=== PATIENT | female | born 1945 | race Two or more races ===

== ENCOUNTER 2019-01-04 16:24 | Inpatient (IN) | payer MEDICARE, MEDICAID ==
[~2019-01-04] VITALS: Ht 152.4 cm; Wt 64.6 kg
--- NOTE | 2019-01-04 17:12 | Emergency Room Report ---
History of Present Illness General Chief Complaint: Back Pain-No Injury Source: Family Member (Luis Carlos Kaur) Present Illness HPI 73-year-old female patient presents the ER brought in by daughter complaining of left-sided flank pain, diarrhea, dysuria for the past week. Patient reports that she recently returned from [place] when she first began having symptoms there. Denies hematuria. Denies vaginal discharge. Reports was treated by "a family member" with ciprofloxacin, clindamycin and ketoconazole topically. Reports symptoms persisted. Denies blood in stool. Denies vomiting. Denies fever. Denies chest pain or shortness of breath. Denies other aggravating or relieving factors. Reports hx of diabetes, states well controlled. Reports history of HIV, states saw her primary care doctor prior to going to [place] and states that her labs were "good", viral load undetectable, CD4 count elevated. (Luis Carlos Kaur) Allergies: Coded Allergies: No Known Allergies (Unverified , 01/04/19) Patient History Past Medical History: see triage record Reviewed Nursing Documentation: PMH: Agreed; PSxH: Agreed (Luis Carlos Kaur) Nursing Documentation-PMH Past Medical History: No History, Except For Hx Hypertension: Yes Hx Diabetes: Yes (Luis Carlos Kaur) Review of Systems All Other Systems: negative except mentioned in HPI (Luis Carlos Kaur) Physical Exam Vital Signs Date Time Temp Pulse Resp B/P (MAP) Pulse Ox O2 Delivery O2 Flow Rate FiO2 01/04/19 16:37 97.5 84 16 109/68 97 Room Air Sp02 EP Interpretation: reviewed, normal General Appearance: well appearing, no apparent distress, alert, GCS 15, non- toxic Head: normocephalic, atraumatic Eyes: bilateral eye normal inspection, bilateral eye PERRL ENT: hearing grossly normal, normal pharynx, no angioedema, normal voice, uvula midline, moist mucus membranes Neck: full range of motion Respiratory: lungs clear, normal breath sounds, no rhonchi, no respiratory distress, no accessory muscle use, no wheezing, speaking full sentences Cardiovascular #1: regular rate, rhythm, no edema Gastrointestinal: normal bowel sounds, non tender, soft, no mass, non-distended , no guarding, no rebound Genitourinary: CVA tenderness (L) Musculoskeletal: back normal, digits/nails normal, gait/station normal, normal range of motion, non-tender Neurologic: alert, oriented x3, responsive, motor strength/tone normal, sensory intact Psychiatric: mood/affect normal Skin: no rash (Luis Carlos Kaur) Medical Decision Making ID Attestation Dr. Franz is my supervising Physician whom patient management has been discussed with. (Luis Carlos Kaur) Medicare Attestation The history of Zulma Lopez has been reviewed and management options for her have been examined and discussed by Olivier Franz. I have personally examined and interviewed the patient. (Olivier Franz MD) Diagnostic Impression: Primary Impression: Weakness Additional Impressions: Hyperglycemia Pancreatitis Renal insufficiency ER Course Pt. presents to the ED c/o diarrhea, left flank pain and dysuria. Ddx considered but are not limited to UTI, yeast infection, gastritis, colitis, nephrolithiasis, hydronephrosis, diverticulitis, DKA, pancreatitis. Vital signs: are WNL, pt. is afebrile ER COURSE: CBC unremarkable, no elevation WBCs UA shows positive yeast, will provide with fluconazole, urine otherwise unremarkable, low suspicion for UTI, does not require antibiotics at this time. CMP shows elevated blood glucose, no anion gap, no ketones in urine, low suspicion for DKA, mild hyponatremia and hypokalemia, will provide patient with IV fluids and oral potassium. Will provide insulin for elevated blood glucose. Creatinine elevated, likely renal insufficiency. Elevated lipase likely secondary to HIV medications causing mild pancreatitis. Repeat Accu-Chek shows blood glucose 316. CT abdomen pelvis negative. Will admit patient for weakness, renal insufficiency, colitis, hyperglycemia. Discuss care with Dr. Franz. Patient will be admitted to Dr. Kaminski. - Please note that this Emergency Department Report was dictated using [employer] catalyst operator technology software, occasionally this can lead to erroneous entry secondary to interpretation by the dictation equipment. (Luis Carlos Kaur) CT/MRI/US Diagnostic Results CT/MRI/US Diagnostic Results : Imaging Test Ordered: CT abdomen pelvis Impression No acute abnormality demonstrated in the abdomen or pelvis (Luis Carlos Kaur.Gelacio) Last Vital Signs Date Time Temp Pulse Resp B/P (MAP) Pulse Ox O2 Delivery O2 Flow Rate FiO2 4/20/19 16:37 97.5 84 16 109/68 97 Room Air (Luis Carlos Kaur) Disposition: ADMITTED INPATIENT Condition: Serious Luis Carlos Kaur Jan 04, 2019 17:12 Olivier Franz MD Jan 08, 2019 06:35
[2019-01-04] MEDS ORDERED: Isovue-300 100ml vial INJ PRN (17:15)
[2019-01-04] MEDS ORDERED: Morphine Sulfate 4mg/ml Inj (IV USE ONLY) IVP ONE (17:15)
[2019-01-04 17:32] LABS: APPEARANCE,URINE CLEAR; BILIRUBIN, URINE NEGATIVE (NEGATIVE); GLUCOSE, URINE (UA) 4+ (NEGATIVE); KETONES,URINE NEGATIVE (NEGATIVE); LEUKOCYTE ESTERASE ,URINE 2+ (NEGATIVE); NITRITE,URINE NEGATIVE (NEGATIVE); PH,URINE 7 (4.5-8.0); PROTEIN,URINE 1+ (NEGATIVE); UROBILINOGEN,URINE NORMAL MG/DL (0.0-1.0)
[2019-01-04 17:33] LABS: COLOR,URINE YELLOW
[2019-01-04 17:42] VITALS: BP 109/68
[2019-01-04 17:48] LABS: BASOPHILS % (AUTO) 1.2 % (0.0-2.0); HEMATOCRIT 35.5 % (37.0-47.0); HEMOGLOBIN 12.8 G/DL (12.0-16.0); LYMPHOCYTES % (AUTO) 18.4 % (20.0-45.0); MEAN CORPUSCULAR VOLUME 89 FL (80-99); NEUTROPHILS % (AUTO) 73.4 % (45.0-75.0); PLATELET COUNT 342 K/UL (150-450); RED CELL DISTRIBUTION WIDTH 10.8 % (11.6-14.8); WHITE BLOOD COUNT 10.6 K/UL (4.8-10.8)
[2019-01-04 17:49] LABS: ALANINE AMINOTRANSFERASE 30 U/L (12-78); ALBUMIN 3.4 G/DL (3.4-5.0); ALBUMIN/GLOBULIN RATIO 0.7 (1.0-2.7); ALKALINE PHOSPHATASE 124 U/L (46-116); ANION GAP 12 mmol/L (5-15); ASPARTATE AMINO TRANSFERASE 17 U/L (15-37); BILIRUBIN,TOTAL 0.4 MG/DL (0.2-1.0); BLOOD UREA NITROGEN 17 mg/dL (7-18); CALCIUM 10.2 MG/DL (8.5-10.1); CARBON DIOXIDE 24 MMOL/L (21-32); CHLORIDE 92 MMOL/L (98-107); CREATININE 1.7 MG/DL (0.55-1.30); POTASSIUM 3.2 MMOL/L (3.5-5.1); SODIUM 128 MMOL/L (136-145)
[2019-01-04] MEDS ORDERED: Fluconazole 100mg tab ORAL ONE (18:00)
[2019-01-04] MEDS ORDERED: Insulin Human Regular 100units/ml 3ml IV ONE (18:15)
[2019-01-04] MEDS ORDERED: OSCAL D500 MG ORAL (18:29)
[2019-01-04] MEDS ORDERED: TRIUMEQ 600-501 EACH PO (18:29)
[2019-01-04] MEDS ORDERED: METFORMIN HCL500 M1 ORAL (18:29)
[2019-01-04] MEDS ORDERED: VITAMIN B COMP1 EAC2 ORAL (18:29)
[2019-01-04] MEDS ORDERED: FERROUS SULFAT325 MG ORAL (18:29)
[2019-01-04] MEDS ORDERED: PRAVASTATIN SOD20 M1 ORAL (18:29)
[2019-01-04] MEDS ORDERED: GLIPIZIDE5 MG ORAL (18:29)
[2019-01-04 20:45] VITALS: BP 133/70
[2019-01-05] VITALS: BP 95/57
[2019-01-05 04:12] VITALS: BP 102/58
[2019-01-05] MEDS: NovoLOG Insulin Flexpen SUBQ SCH ×4 (06:22→20:41)
[2019-01-05 08:00] VITALS: BP 87/48
[2019-01-05 08:48] LABS: ANION GAP 10 mmol/L (5-15); BLOOD UREA NITROGEN 12 mg/dL (7-18); CALCIUM 8.6 MG/DL (8.5-10.1); CARBON DIOXIDE 22 MMOL/L (21-32); CHLORIDE 104 MMOL/L (98-107); CREATININE 1.3 MG/DL (0.55-1.30); POTASSIUM 3.9 MMOL/L (3.5-5.1); SODIUM 136 MMOL/L (136-145)
[2019-01-05] MEDS: Captopril 25mg tab ORAL SCH (09:00)
[2019-01-05] MEDS: Calcium Carbonate 500mg w/Vit D 200iu tab ORAL SCH ×2 (09:05→16:59)
[2019-01-05] MEDS: Vitamin B Complex Tab ORAL SCH (09:05)
--- NOTE | 2019-01-05 10:35 | History & Physical ---
History and Physical History & Physicial HP dictated # [id number] Walker Kaminski MD Jan 05, 2019 10:35
[2019-01-05] MEDS: cefTRIAXone 1 GM in D5W 55 ML IVPB SCH (11:28)
[2019-01-05 12:00] VITALS: BP 120/59
[2019-01-05 16:00] VITALS: BP 105/57
--- NOTE | 2019-01-05 16:45 | History and Physical Report ---
DATE OF ADMISSION: 01/04/2019 CHIEF COMPLAINT: Left-sided flank pain. HISTORY OF PRESENT ILLNESS: This is a 73-year-old female, who does not speak Georgian. History was obtained from the chart as well as through the clinical trials data coordinator. The patient says that she has left-sided flank pain and dysuria, and she just recently came back from [place]. The patient was seen in the emergency room and was found to have urinary tract infection and admitted for further care. Of note, the patient also has a history of HIV, which she contracted from a partner. PAST MEDICAL HISTORY: The patient has also history of diabetes and hypertension. MEDICATIONS: Reviewed in the EMR. SOCIAL HISTORY: The patient lives at home with daughter. There is no history of smoking or alcohol abuse. ALLERGIES: No known drug allergies. REVIEW OF SYSTEMS: Noncontributory. PHYSICAL EXAMINATION: GENERAL: The patient is an elderly female, in no acute distress. VITAL SIGNS: Blood pressure is 109/68, pulse 84, temperature 97.5, and respiratory rate 16. HEENT: [place] conjunctivae. Anicteric sclerae. NECK: Supple. LUNGS: Clear to auscultation. HEART: S1, S2 without murmurs or rubs. ABDOMEN: Soft and nontender. EXTREMITIES: No cyanosis or edema. LABORATORY FINDINGS: CBC shows a WBC 10,600, hematocrit 35.5, hemoglobin 12.8, and platelets 342,000. Chemistry panel shows a sodium 136, potassium 3.9, chloride 104, BUN 12, and creatinine 1.3. Blood sugar is 208. Blood sugar yesterday was 529 and serum sodium was 128. Lipase was 444. ASSESSMENT: This is a 73-year-old female with history of HIV, who presents now with urinary tract infection. UA shows 5 to 10 per high-power field. PLAN: The patient was started on IV antibiotics and IV normal saline. She had hyponatremia, which had improved with saline. ID consultation will be obtained and adjustment will be made in the patient's regimen. Walker Kaminski M.D. : VASQUEZ JOB#: [id number] CC:
--- NOTE | 2019-01-05 16:45 | Consultation ---
DATE OF CONSULTATION: 01/05/2019 INFECTIOUS DISEASES CONSULTATION CONSULTING PHYSICIAN: Quinton Kaminski M.D. PRIMARY ATTENDING PHYSICIAN: Walker Kaminski M.D. REASON FOR CONSULTATION: HIV and UTI. HISTORY OF PRESENT ILLNESS: This is a 73-year-old female admitted last evening with complaints of left-sided flank pain, diarrhea, dysuria. The patient had urinary frequency. The patient has returned back from [place] one month ago. There she was treated for likely urinary tract infection with Cipro, clindamycin, ketoconazole topically. She has HIV for 4 years and has a primary doctor. At the time of admission, it was found that the patient has acute renal failure and hyperglycemia. PAST MEDICAL HISTORY: Significant for diabetes mellitus for 15 years. The patient had a stroke about 4 years ago and has weakness in the left side of the body, HIV diagnosed 4 years ago at the time of stroke. 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 ALLERGIES: No known drug allergies. MEDICATIONS: Getting calcium carbonate, ferrous sulfate, vitamin B complex , insulin, sodium chloride, morphine, pravastatin, Zofran. SOCIAL HISTORY: , originally from [place]. Denies alcohol, drug abuse, or smoking. Thinks she got HIV from boyfriend. REVIEW OF SYSTEMS: The patient currently is pain-free. No fever. No chills. No nausea. No vomiting. Has urinary frequency. Has weakness in the left side of the body that is unchanged, but is ambulatory and can go to the bathroom. PHYSICAL EXAMINATION: VITAL SIGNS: Temperature is 97.8 daily, pulse 50, blood pressure 87/48. GENERAL APPEARANCE: Seems to have normal weight. HEAD AND NECK: [place] conjunctivae. No teeth. No oral lesion. HEART: Bradycardic. LUNGS: Clear. ABDOMEN: Soft and nontender. EXTREMITIES: No edema. NEUROLOGIC: Awake, alert, oriented x3. LABORATORY AND DIAGNOSTIC DATA: Sodium 136, sodium at the time of admission was 128. Potassium 3.9, potassium at the time of admission was 3.2. BUN 12 and creatinine 1.3. Creatinine at the time of admission was 1.7. Glucose 208, glucose at the time of admission was 520. Hemoglobin A1c is 13. Lipase was elevated at 444. CT scan of the abdomen and pelvis was negative. Urine cultures so far negative. IMPRESSION: HIV unknown stage and on unknown medication. The daughter is supposed to bring the patient medication from home. The patient had mild pyuria, may have UTI, mild pancreatitis, diabetes with hyperglycemia. Electronic imbalance was corrected. . Acute renal failure that is improving. RECOMMENDATION: We will give the patient ceftriaxone. We will follow up HIV medications with daughter. At the end of my exam, I thank Dr. Walker Kaminski for involving me in the care of this patient. Quinton Kaminski M.D. DR: Gadiel JOB#: [id number] CC: MARITA
[2019-01-05 20:00] VITALS: BP 134/62
[2019-01-05] MEDS: TRIUMEQ ORAL SCH (20:35)
[2019-01-06] VITALS: BP 123/58
[2019-01-06 04:00] VITALS: BP 122/68
[2019-01-06] MEDS: NovoLOG Insulin Flexpen SUBQ SCH ×6 (06:23→21:00)
[2019-01-06 08:00] VITALS: BP 134/74
[2019-01-06] MEDS: Calcium Carbonate 500mg w/Vit D 200iu tab ORAL SCH ×2 (08:40→17:36)
[2019-01-06] MEDS: Vitamin B Complex Tab ORAL SCH (08:40)
[2019-01-06] MEDS: Captopril 25mg tab ORAL SCH (08:40)
[2019-01-06] MEDS: cefTRIAXone 1 GM in D5W 55 ML IVPB SCH (08:41)
[2019-01-06 12:00] VITALS: BP 114/57
--- NOTE | 2019-01-06 13:19 | Infectious Diseases Prog Note ---
Assessment/Plan Assessment/Plan IMPRESSION: HIV on Triumeq mild pyuria, may have UTI, mild pancreatitis, diabetes with hyperglycemia. Electronic imbalance was corrected. . Acute renal failure that is improving. RECOMMENDATION: Continue ceftriaxone Continue ART Subjective ROS Limited/Unobtainable: No Constitutional: Reports: no symptoms Respiratory: Reports: no symptoms Cardiovascular: Reports: no symptoms Gastrointestinal/Abdominal: Reports: no symptoms Genitourinary: Reports: no symptoms Allergies: Coded Allergies: No Known Allergies (Unverified , 01/04/19) Objective Vital Signs Last 24 Hour Vital Signs Date Time Temp Pulse Resp B/P (MAP) Pulse Ox O2 Delivery O2 Flow Rate FiO2 01/06/19 12:00 98.7 57 16 114/57 (76) 01/06/19 09:00 Room Air 01/06/19 08:40 137/74 01/06/19 08:00 98.1 62 134/74 (94) 01/06/19 04:00 98.7 58 16 122/68 (86) 98 01/06/19 00:00 99.2 62 16 123/58 (79) 97 01/05/19 21:00 Room Air 01/05/19 20:00 98.8 65 16 134/62 (86) 96 01/05/19 16:00 99.0 57 18 105/57 (73) 97 Height (Feet): 5 Height (Inches): 0.00 Weight (Pounds): 140 General Appearance: no acute distress HEENT: mucous membranes moist Respiratory/Chest: lungs clear Cardiovascular: normal rate Abdomen: soft, non tender Extremities: no edema Neurologic/Psychiatric: alert, oriented x 3, responsive Microbiology Date/Time Source Procedure Growth Status 01/04/19 16:55 Urine,Clean Catch Urine Culture - Final Lactobacillus Species Complete Current Medications Medications (Trade) Dose Ordered Sig/Lebron Route PRN Reason Start Time Stop Time Status Last Admin Dose Admin Acetaminophen (Tylenol) 650 mg Q4H PRN ORAL Prn Headache/Temp > 101 01/04/19 22:00 02/03/19 21:59 01/04/19 22:53 Calcium Carbonate (OsCal D) 1 tab BID ORAL 01/05/19 09:00 02/04/19 08:59 01/06/19 08:40 Captopril (Capoten) 25 mg Q24HRS ORAL 01/05/19 09:00 02/04/19 08:59 01/06/19 08:40 Ceftriaxone Sodium 1 gm/ Dextrose 55 ml @ 110 mls/hr DAILY IVPB 01/05/19 12:00 01/12/19 11:59 01/06/19 08:41 Dextrose (Dextrose 50%) 25 ml Q30M PRN IV Hypoglycemia 01/04/19 21:45 02/03/19 21:44 Dextrose (Dextrose 50%) 50 ml Q30M PRN IV Hypoglycemia 01/04/19 21:45 02/03/19 21:44 Ferrous Sulfate (Feosol) 325 mg TWICE A DAY ORAL 01/05/19 09:00 02/04/19 08:59 01/06/19 08:40 Insulin Aspart (NovoLOG) BEFORE MEALS AND HS SUBQ 01/05/19 06:30 02/04/19 06:29 01/06/19 12:19 Iopamidol (Isovue-300 100ml) 100 ml NOW PRN INJ Radiology Procedure 01/04/19 17:15 Morphine Sulfate (Morphine Sulfate) 3 mg Q3H PRN IVP Moderate Pain (Pain Scale 4-6) 01/04/19 21:45 01/11/19 21:44 Morphine Sulfate (Morphine Sulfate) 5 mg Q3H PRN IVP Severe Pain (Pain Scale 7-10) 01/04/19 21:45 01/11/19 21:44 Ondansetron HCl (Zofran) 4 mg Q4H PRN IVP Nausea & Vomiting 01/04/19 21:45 02/03/19 21:44 Patient Own Medication (Patient's Own Med) 1 ea DAILY@1800 ORAL 01/05/19 21:00 02/04/19 20:59 01/05/19 20:35 Pravastatin Sodium (Pravachol) 40 mg BEDTIME ORAL 01/04/19 21:45 02/03/19 21:44 01/05/19 20:40 Sodium Chloride 1,000 ml @ 75 mls/hr [id number] IV 01/04/19 21:45 02/03/19 21:44 01/06/19 00:09 Vitamin B Complex (Vitamin B Complex) 1 tab DAILY ORAL 01/05/19 09:00 02/04/19 08:59 01/06/19 08:40 Quinton Kaminski MD Jan 06, 2019 13:19
[2019-01-06 16:09] VITALS: BP 158/76
--- NOTE | 2019-01-06 16:44 | General Progress Note ---
Assessment/Plan Problem List: (1) ARF (acute renal failure) ICD Codes: N17.9 - Acute kidney failure, unspecified SNOMED: 99548517 (2) Hyponatremia ICD Codes: E87.1 - Hypo-osmolality and hyponatremia SNOMED: 91149429 (3) Hyperglycemia ICD Codes: R73.9 - Hyperglycemia, unspecified SNOMED: 84041334 (4) UTI (urinary tract infection) ICD Codes: N39.0 - Urinary tract infection, site not specified SNOMED: 70823273 Plan: abxs followlabs Discussed with RN Subjective Allergies: Coded Allergies: No Known Allergies (Unverified , 01/04/19) Subjective feels ok Objective Last 24 Hour Vital Signs Date Time Temp Pulse Resp B/P (MAP) Pulse Ox O2 Delivery O2 Flow Rate FiO2 01/06/19 16:09 99.1 65 18 158/76 (103) 98 01/06/19 12:00 98.7 57 16 114/57 (76) 01/06/19 09:00 Room Air 01/06/19 08:40 137/74 01/06/19 08:00 98.1 62 134/74 (94) 01/06/19 04:00 98.7 58 16 122/68 (86) 98 01/06/19 00:00 99.2 62 16 123/58 (79) 97 01/05/19 21:00 Room Air 01/05/19 20:00 98.8 65 16 134/62 (86) 96 Intake and Output 01/05/19 01/06/19 19:00 07:00 Intake Total 1700 ml 675 ml Output Total 2100 ml 1800 ml Balance -400 ml -1125 ml Intake Oral 800 ml 675 ml IV Total 900 ml Output Urine Total 2100 ml 1800 ml # Voids 3 3 Height (Feet): 5 Height (Inches): 0.00 Weight (Pounds): 140 Cardiovascular: normal rate Respiratory/Chest: lungs clear Walker Kaminski MD Jan 06, 2019 16:43
[2019-01-06] MEDS: TRIUMEQ ORAL SCH (18:29)
[2019-01-06] MEDS ORDERED: NovoLOG Insulin Flexpen SUBQ SCH (19:00)
[2019-01-06 20:00] VITALS: BP 137/65
[2019-01-06] MEDS: Morphine Sulfate 4mg/ml Inj (IV USE ONLY) IVP PRN (20:37)
[2019-01-07] VITALS: BP 114/65
[2019-01-07] MEDS: Morphine Sulfate 4mg/ml Inj (IV USE ONLY) IVP PRN ×3 (01:48→16:09)
[2019-01-07 04:00] VITALS: BP 146/73
[2019-01-07] MEDS: NovoLOG Insulin Flexpen SUBQ SCH ×6 (05:57→22:35)
[2019-01-07 06:37] LABS: BASOPHILS % (AUTO) 0.7 % (0.0-2.0); EOSINOPHILS % (AUTO) 0.6 % (0.0-3.0); HEMOGLOBIN 11.6 G/DL (12.0-16.0); LYMPHOCYTES % (AUTO) 7.9 % (20.0-45.0); MEAN CORPUSCULAR VOLUME 94 FL (80-99); MONOCYTES % (AUTO) 7.3 % (1.0-10.0); NEUTROPHILS % (AUTO) 83.6 % (45.0-75.0); PLATELET COUNT 264 K/UL (150-450); RED CELL DISTRIBUTION WIDTH 11.8 % (11.6-14.8); WHITE BLOOD COUNT 8.5 K/UL (4.8-10.8)
[2019-01-07 06:51] LABS: ANION GAP 12 mmol/L (5-15); BLOOD UREA NITROGEN 13 mg/dL (7-18); CARBON DIOXIDE 23 MMOL/L (21-32); CHLORIDE 99 MMOL/L (98-107); CREATININE 1.4 MG/DL (0.55-1.30); POTASSIUM 3.4 MMOL/L (3.5-5.1); SODIUM 134 MMOL/L (136-145)
[2019-01-07 08:00] VITALS: BP 147/78
[2019-01-07] MEDS: cefTRIAXone 1 GM in D5W 55 ML IVPB SCH (09:23)
[2019-01-07] MEDS: Vitamin B Complex Tab ORAL SCH (09:24)
[2019-01-07] MEDS: Captopril 25mg tab ORAL SCH (09:25)
[2019-01-07] MEDS: Calcium Carbonate 500mg w/Vit D 200iu tab ORAL SCH ×2 (09:25→17:46)
--- NOTE | 2019-01-07 11:07 | Infectious Diseases Prog Note ---
Assessment/Plan Assessment/Plan IMPRESSION: HIV on Triumeq mild pyuria, may have UTI, mild pancreatitis, diabetes with hyperglycemia. Electronic imbalance was corrected. . Acute renal failure that is improving. Ankle edema RECOMMENDATION: Continue ceftriaxone Continue ART R ankle x-ray Subjective ROS Limited/Unobtainable: No Constitutional: Reports: no symptoms Respiratory: Reports: no symptoms Cardiovascular: Reports: no symptoms Gastrointestinal/Abdominal: Reports: no symptoms Genitourinary: Reports: no symptoms Musculoskeletal: Reports: pain, swelling, other - in right ankle Allergies: Coded Allergies: No Known Allergies (Unverified , 01/04/19) Objective Vital Signs Last 24 Hour Vital Signs Date Time Temp Pulse Resp B/P (MAP) Pulse Ox O2 Delivery O2 Flow Rate FiO2 01/07/19 09:25 147/78 01/07/19 09:00 Room Air 01/07/19 08:00 98.9 78 20 147/78 (101) 98 01/07/19 04:00 98.1 74 19 146/73 (97) 96 01/07/19 00:00 97.6 61 16 114/65 (81) 97 01/06/19 21:00 Room Air 01/06/19 20:00 98.2 65 17 137/65 (89) 97 01/06/19 16:09 99.1 65 18 158/76 (103) 98 01/06/19 12:00 98.7 57 16 114/57 (76) Height (Feet): 5 Height (Inches): 0.00 Weight (Pounds): 140 General Appearance: no acute distress HEENT: mucous membranes moist Respiratory/Chest: lungs clear Cardiovascular: normal rate Abdomen: soft, non tender Extremities: other - localized edema & pain in R ankle Skin: no rash Neurologic/Psychiatric: alert, oriented x 3, responsive Microbiology Date/Time Source Procedure Growth Status 01/04/19 16:55 Urine,Clean Catch Urine Culture - Final Lactobacillus Species Complete Laboratory Tests Test 01/07/19 05:45 White Blood Count 8.5 K/UL (4.8-10.8) Red Blood Count 3.60 M/UL (4.20-5.40) L Hemoglobin 11.6 G/DL (12.0-16.0) L Hematocrit 34.0 % (37.0-47.0) L Mean Corpuscular Volume 94 FL (80-99) Mean Corpuscular Hemoglobin 32.2 PG (27.0-31.0) H Mean Corpuscular Hemoglobin Concent 34.1 G/DL (32.0-36.0) Red Cell Distribution Width 11.8 % (11.6-14.8) Platelet Count 264 K/UL (150-450) Mean Platelet Volume 6.5 FL (6.5-10.1) Neutrophils (%) (Auto) 83.6 % (45.0-75.0) H Lymphocytes (%) (Auto) 7.9 % (20.0-45.0) L Monocytes (%) (Auto) 7.3 % (1.0-10.0) Eosinophils (%) (Auto) 0.6 % (0.0-3.0) Basophils (%) (Auto) 0.7 % (0.0-2.0) Sodium Level 134 MMOL/L (136-145) L Potassium Level 3.4 MMOL/L (3.5-5.1) L Chloride Level 99 MMOL/L (98-107) Carbon Dioxide Level 23 MMOL/L (21-32) Anion Gap 12 mmol/L (5-15) Blood Urea Nitrogen 13 mg/dL (7-18) Creatinine 1.4 MG/DL (0.55-1.30) H Estimat Glomerular Filtration Rate mL/min (>60) Glucose Level 341 MG/DL (74-106) H Calcium Level 9.0 MG/DL (8.5-10.1) Current Medications Medications (Trade) Dose Ordered Sig/Lebron Route PRN Reason Start Time Stop Time Status Last Admin Dose Admin Acetaminophen (Tylenol) 650 mg Q4H PRN ORAL Prn Headache/Temp > 101 01/04/19 22:00 02/03/19 21:59 01/07/19 09:24 Calcium Carbonate (OsCal D) 1 tab BID ORAL 01/05/19 09:00 02/04/19 08:59 01/07/19 09:25 Captopril (Capoten) 25 mg Q24HRS ORAL 01/05/19 09:00 02/04/19 08:59 01/07/19 09:25 Ceftriaxone Sodium 1 gm/ Dextrose 55 ml @ 110 mls/hr DAILY IVPB 01/05/19 12:00 01/12/19 11:59 01/07/19 09:23 Dextrose (Dextrose 50%) 25 ml Q30M PRN IV Hypoglycemia 01/04/19 21:45 02/03/19 21:44 Dextrose (Dextrose 50%) 50 ml Q30M PRN IV Hypoglycemia 01/04/19 21:45 02/03/19 21:44 Ferrous Sulfate (Feosol) 325 mg TWICE A DAY ORAL 01/05/19 09:00 02/04/19 08:59 01/07/19 09:24 Insulin Aspart (NovoLOG) BEFORE MEALS AND HS SUBQ 01/05/19 06:30 02/04/19 06:29 01/07/19 06:45 Iopamidol (Isovue-300 100ml) 100 ml NOW PRN INJ Radiology Procedure 01/04/19 17:15 Morphine Sulfate (Morphine Sulfate) 3 mg Q3H PRN IVP Moderate Pain (Pain Scale 4-6) 01/04/19 21:45 01/11/19 21:44 01/07/19 05:55 Morphine Sulfate (Morphine Sulfate) 5 mg Q3H PRN IVP Severe Pain (Pain Scale 7-10) 01/04/19 21:45 01/11/19 21:44 Ondansetron HCl (Zofran) 4 mg Q4H PRN IVP Nausea & Vomiting 01/04/19 21:45 02/03/19 21:44 01/06/19 21:54 Patient Own Medication (Patient's Own Med) 1 ea DAILY@1800 ORAL 01/07/19 18:00 02/04/19 20:59 Pravastatin Sodium (Pravachol) 40 mg BEDTIME ORAL 01/04/19 21:45 02/03/19 21:44 01/06/19 20:36 Sodium Chloride 1,000 ml @ 75 mls/hr [id number] IV 01/04/19 21:45 02/03/19 21:44 01/07/19 03:05 Vitamin B Complex (Vitamin B Complex) 1 tab DAILY ORAL 01/05/19 09:00 02/04/19 08:59 01/07/19 09:24 Quinton Kaminski MD Jan 07, 2019 11:07
[2019-01-07 12:00] VITALS: BP 110/75
--- NOTE | 2019-01-07 15:45 | General Progress Note ---
Assessment/Plan Problem List: (1) ARF (acute renal failure) ICD Codes: N17.9 - Acute kidney failure, unspecified SNOMED: 01172693 (2) Hyponatremia ICD Codes: E87.1 - Hypo-osmolality and hyponatremia SNOMED: 49179165 (3) Hyperglycemia ICD Codes: R73.9 - Hyperglycemia, unspecified SNOMED: 87710657 (4) UTI (urinary tract infection) ICD Codes: N39.0 - Urinary tract infection, site not specified SNOMED: 12461015 Plan: Check x-ray of ankle. Endocrine consult for diabetes. Discussed with family and RN. Follow labs Antibiotics Subjective Allergies: Coded Allergies: No Known Allergies (Unverified , 01/04/19) Subjective Patient has developed a right ankle swelling and redness Objective Last 24 Hour Vital Signs Date Time Temp Pulse Resp B/P (MAP) Pulse Ox O2 Delivery O2 Flow Rate FiO2 01/07/19 09:25 147/78 01/07/19 09:00 Room Air 01/07/19 08:00 98.9 78 20 147/78 (101) 98 01/07/19 04:00 98.1 74 19 146/73 (97) 96 01/07/19 00:00 97.6 61 16 114/65 (81) 97 01/06/19 21:00 Room Air 01/06/19 20:00 98.2 65 17 137/65 (89) 97 01/06/19 16:09 99.1 65 18 158/76 (103) 98 Intake and Output 01/06/19 01/07/19 18:59 06:59 Intake Total 1425 ml 360 ml Balance 1425 ml 360 ml Intake Oral 1200 ml 360 ml IV Total 225 ml # Voids 3 1 Laboratory Tests 01/07/19 05:45: White Blood Count 8.5, Red Blood Count 3.60L, Hemoglobin 11.6L, Hematocrit 34.0L , Mean Corpuscular Volume 94, Mean Corpuscular Hemoglobin 32.2H, Mean Corpuscular Hemoglobin Concent 34.1, Red Cell Distribution Width 11.8, Platelet Count 264, Mean Platelet Volume 6.5, Neutrophils (%) (Auto) 83.6H, Lymphocytes ( %) (Auto) 7.9L, Monocytes (%) (Auto) 7.3, Eosinophils (%) (Auto) 0.6, Basophils (%) (Auto) 0.7, Sodium Level 134L, Potassium Level 3.4L, Chloride Level 99, Carbon Dioxide Level 23, Anion Gap 12, Blood Urea Nitrogen 13, Creatinine 1.4H, Estimat Glomerular Filtration Rate , Glucose Level 341H, Calcium Level 9.0 01/07/19 12:55: Glucose Level 456#H Height (Feet): 5 Height (Inches): 0.00 Weight (Pounds): 140 Cardiovascular: normal rate Respiratory/Chest: lungs clear Extremities: other - Right lateral malleolus shows edema and redness Walker Kaminski MD Jan 07, 2019 15:45
[2019-01-07 16:00] VITALS: BP 131/62
--- NOTE | 2019-01-07 16:04 | Diagnostic Imaging Report ---
Indication: Right ankle pain Technique: 2 views of the right ankle Comparison: none Findings: There are plantar and calcaneal spurs. No definite acute fracture. No dislocations. Joint spaces are preserved Impression: No acute process
[2019-01-07] MEDS: Heparin 5000 units/ml inj SUBQ SCH ×2 (17:46→21:21)
[2019-01-07] MEDS: TRIUMEQ ORAL SCH (17:51)
[2019-01-07 20:00] VITALS: BP 127/65
[2019-01-07] MEDS ORDERED: Levemir Flexpen SUBQ SCH (21:00)
[2019-01-08] VITALS: BP 126/62
[2019-01-08] MEDS: Morphine Sulfate 4mg/ml Inj (IV USE ONLY) IVP PRN (02:24)
[2019-01-08 04:00] VITALS: BP 111/65
[2019-01-08] MEDS: NovoLOG Insulin Flexpen SUBQ SCH ×7 (05:47→20:35)
[2019-01-08 08:00] VITALS: BP 120/66
[2019-01-08] MEDS: Heparin 5000 units/ml inj SUBQ SCH ×2 (08:41→20:36)
[2019-01-08] MEDS: Calcium Carbonate 500mg w/Vit D 200iu tab ORAL SCH ×2 (08:41→17:53)
[2019-01-08] MEDS: cefTRIAXone 1 GM in D5W 55 ML IVPB SCH (08:41)
[2019-01-08] MEDS: Captopril 25mg tab ORAL SCH (08:41)
[2019-01-08] MEDS: Vitamin B Complex Tab ORAL SCH (08:41)
[2019-01-08 12:00] VITALS: BP 143/72
--- NOTE | 2019-01-08 13:24 | Infectious Diseases Prog Note ---
Assessment/Plan Assessment/Plan IMPRESSION: HIV on Triumeq mild pyuria, may have UTI, mild pancreatitis, diabetes with hyperglycemia. Electronic imbalance was corrected. . Acute renal failure that is improving. Ankle edema, X ray & venous duplex are negative RECOMMENDATION: Continue ceftriaxone Continue ART Check uric acid Subjective ROS Limited/Unobtainable: No Constitutional: Reports: fever, other - low grade Respiratory: Reports: no symptoms Cardiovascular: Reports: no symptoms Gastrointestinal/Abdominal: Reports: constipation Genitourinary: Reports: no symptoms Musculoskeletal: Reports: pain, other - in right ankle Allergies: Coded Allergies: No Known Allergies (Unverified , 01/04/19) Objective Vital Signs Last 24 Hour Vital Signs Date Time Temp Pulse Resp B/P (MAP) Pulse Ox O2 Delivery O2 Flow Rate FiO2 01/08/19 12:00 98.4 67 18 143/72 (95) 97 01/08/19 09:00 Room Air 01/08/19 08:41 120/66 01/08/19 08:00 99.4 68 19 120/66 (84) 95 01/08/19 04:00 98.3 73 18 111/65 (80) 97 01/08/19 00:00 100.0 76 16 126/62 (83) 96 01/07/19 21:00 Room Air 01/07/19 20:00 100.0 81 16 127/65 (85) 95 01/07/19 16:00 99.5 70 18 131/62 (85) Height (Feet): 5 Height (Inches): 0.00 Weight (Pounds): 137 General Appearance: no acute distress HEENT: mucous membranes moist Respiratory/Chest: lungs clear Cardiovascular: normal rate Abdomen: soft, non tender Extremities: other - R ankle swelling Neurologic/Psychiatric: alert, responsive Laboratory Tests Test 01/07/19 17:40 01/07/19 21:30 Glucose Level 567 MG/DL (74-106) #*H 527 MG/DL (74-106) *H Current Medications Medications (Trade) Dose Ordered Sig/Lebron Route PRN Reason Start Time Stop Time Status Last Admin Dose Admin Acetaminophen (Tylenol) 650 mg Q4H PRN ORAL Prn Headache/Temp > 101 01/04/19 22:00 02/03/19 21:59 01/08/19 02:26 Calcium Carbonate (OsCal D) 1 tab BID ORAL 01/05/19 09:00 02/04/19 08:59 01/08/19 08:41 Captopril (Capoten) 25 mg Q24HRS ORAL 01/05/19 09:00 02/04/19 08:59 01/08/19 08:41 Ceftriaxone Sodium 1 gm/ Dextrose 55 ml @ 110 mls/hr DAILY IVPB 01/05/19 12:00 01/12/19 11:59 01/08/19 08:41 Dextrose (Dextrose 50%) 25 ml Q30M PRN IV Hypoglycemia 01/07/19 18:00 02/06/19 17:59 Dextrose (Dextrose 50%) 50 ml Q30M PRN IV Hypoglycemia 01/07/19 18:00 02/06/19 17:59 Ferrous Sulfate (Feosol) 325 mg TWICE A DAY ORAL 01/05/19 09:00 02/04/19 08:59 01/08/19 08:41 Heparin Sodium (Porcine) (Heparin 5000 units/ml) 5,000 units EVERY 12 HOURS SUBQ 01/07/19 16:45 02/06/19 16:44 01/08/19 08:41 Insulin Aspart (NovoLOG) BEFORE MEALS AND HS SUBQ 01/05/19 06:30 02/04/19 06:29 01/08/19 11:25 Insulin Aspart (NovoLOG) 8 units NOVOTIAC SUBQ 01/07/19 18:30 02/06/19 18:29 01/08/19 12:19 Insulin Detemir (Levemir) 24 units BEDTIME SUBQ 01/07/19 21:00 02/06/19 20:59 01/07/19 22:32 Iopamidol (Isovue-300 100ml) 100 ml NOW PRN INJ Radiology Procedure 01/04/19 17:15 Morphine Sulfate (Morphine Sulfate) 3 mg Q3H PRN IVP Moderate Pain (Pain Scale 4-6) 01/04/19 21:45 01/11/19 21:44 01/08/19 02:24 Morphine Sulfate (Morphine Sulfate) 5 mg Q3H PRN IVP Severe Pain (Pain Scale 7-10) 01/04/19 21:45 01/11/19 21:44 Ondansetron HCl (Zofran) 4 mg Q4H PRN IVP Nausea & Vomiting 01/04/19 21:45 02/03/19 21:44 01/06/19 21:54 Patient Own Medication (Patient's Own Med) 1 ea DAILY@1800 ORAL 01/07/19 18:00 02/04/19 20:59 01/07/19 17:51 Pravastatin Sodium (Pravachol) 40 mg BEDTIME ORAL 01/04/19 21:45 02/03/19 21:44 01/07/19 21:09 Sodium Chloride 1,000 ml @ 75 mls/hr [id number] IV 01/04/19 21:45 02/03/19 21:44 01/08/19 05:39 Vitamin B Complex (Vitamin B Complex) 1 tab DAILY ORAL 01/05/19 09:00 02/04/19 08:59 01/08/19 08:41 Quinton Kaminski MD Jan 08, 2019 13:24
[2019-01-08 16:00] VITALS: BP 134/72
[2019-01-08] MEDS ORDERED: Tubing IV Secondary IV ONE (17:19)
[2019-01-08] MEDS: TRIUMEQ ORAL SCH (17:53)
--- NOTE | 2019-01-08 19:15 | General Progress Note ---
Assessment/Plan Problem List: (1) ARF (acute renal failure) ICD Codes: N17.9 - Acute kidney failure, unspecified SNOMED: 33873784 (2) Hyponatremia ICD Codes: E87.1 - Hypo-osmolality and hyponatremia SNOMED: 23643512 (3) Hyperglycemia ICD Codes: R73.9 - Hyperglycemia, unspecified SNOMED: 00668774 (4) UTI (urinary tract infection) ICD Codes: N39.0 - Urinary tract infection, site not specified SNOMED: 01132783 (5) Right ankle effusion ICD Codes: M25.471 - Effusion, right ankle SNOMED: 914188151 Assessment/Plan: I discussed the case with Dr. Payne from endocrine. He is adjusting patient's diabetic medications. Continue antibiotics Follow labs Rheumatology consult Discussed with family and RN Subjective Allergies: Coded Allergies: No Known Allergies (Unverified , 01/04/19) Subjective Patient has still swelling and redness over the lateral malleolus of right ankle Objective Last 24 Hour Vital Signs Date Time Temp Pulse Resp B/P (MAP) Pulse Ox O2 Delivery O2 Flow Rate FiO2 01/08/19 18:48 101.2 01/08/19 16:00 100.0 79 20 134/72 (92) 95 01/08/19 12:00 98.4 67 18 143/72 (95) 97 01/08/19 09:00 Room Air 01/08/19 08:41 120/66 01/08/19 08:00 99.4 68 19 120/66 (84) 95 01/08/19 04:00 98.3 73 18 111/65 (80) 97 01/08/19 00:00 100.0 76 16 126/62 (83) 96 01/07/19 21:00 Room Air 01/07/19 20:00 100.0 81 16 127/65 (85) 95 Intake and Output 01/07/19 01/08/19 18:59 06:59 Intake Total 1280 ml 1110 ml Balance 1280 ml 1110 ml Intake Oral 720 ml 360 ml IV Total 560 ml 750 ml # Voids 1 4 Laboratory Tests 01/07/19 21:30: Glucose Level 527*H Height (Feet): 5 Height (Inches): 0.00 Weight (Pounds): 137 Cardiovascular: normal rate Respiratory/Chest: lungs clear Extremities: other - Right malleolus redness and swelling Walker Kaminski MD Jan 08, 2019 19:15
[2019-01-08] MEDS: Morphine Sulfate 10mg/ml Inj IVP PRN (19:56)
[2019-01-08 20:00] VITALS: BP 119/60
--- NOTE | 2019-01-08 20:00 | Consultation ---
DATE OF CONSULTATION: 01/08/2019 ENDOCRINOLOGY CONSULTATION CONSULTING PHYSICIAN: Jaxson Payne M.D. REFERRING PHYSICIAN: Walker Kaminski M.D. REASON FOR CONSULTATION: Diabetes management. HISTORY OF PRESENT ILLNESS: The patient is a pleasant 73-year-old female with history of HIV disease and diabetes, at home on metformin and glipizide therapy, who recently came back from [place] last Sunday, presented to the hospital with right flank pain and weakness. After presentation, she was noted to have a glucose in the 500 range. She was started on IV fluids and treated with insulin last night and started on Levemir 24 units. This morning, blood sugar was still in the 300 range. Gradually, the patient's glucose is slightly better today. MEDICATIONS: Reviewed and reconciled. SOCIAL HISTORY: No smoking, alcohol, or drug use. PAST MEDICAL HISTORY: 1. Diabetes. 2. HIV disease. 3. Hyperlipidemia. PAST SURGICAL HISTORY: None. FAMILY HISTORY: Diabetes. ALLERGIES TO MEDICATIONS: None. REVIEW OF SYSTEMS: A 12-point review of systems was performed and the pertinent positive and negative are mentioned in the present illness. PHYSICAL EXAMINATION: GENERAL: She is awake and alert. VITAL SIGNS: Blood pressure is 143/72, pulse of 67, temperature of 98.4, respiratory rate 18. HEENT: Pupils are equal and reactive to light. Sclerae anicteric. NECK: No JVD. No thyromegaly. No bruits. LUNGS: Clear. HEART: Regular rate and rhythm. ABDOMEN: Positive bowel sounds. Soft. EXTREMITIES: No clubbing, cyanosis, or edema. DIAGNOSES: 1. Diabetes, out of control, probably exacerbated by urinary tract infection and pancreatitis. 2. UTI. 3. Pancreatitis. 4. Hypertension. PLAN: 1. Increase the Levemir to 36 units at bedtime. 2. Increase the NovoLog to 12 units before each meal. 3. NovoLog sliding scale before meals and at bedtime. 4. Continue to hold metformin and glipizide for now. 5. Hemoglobin A1c is 13, which tells me that the diabetes was in poor control as an outpatient. 6. I will follow the patient during hospital stay. Thank you, Dr. Kaminski, for the courtesy of this consultation. Jaxson Payne M.D. DR: ALEJANDRO JOB#: [id number] CC:
[2019-01-08] MEDS: Levemir Flexpen SUBQ SCH (20:36)
[2019-01-09] VITALS: BP 125/67
[2019-01-09 04:00] VITALS: BP 122/73
[2019-01-09] MEDS: NovoLOG Insulin Flexpen SUBQ SCH ×7 (06:19→20:48)
--- NOTE | 2019-01-09 06:27 | General Progress Note ---
Assessment/Plan Problem List: (1) Diabetes mellitus out of control ICD Codes: E11.65 - Type 2 diabetes mellitus with hyperglycemia SNOMED: 95650934, 658397042 (2) Hyperglycemia ICD Codes: R73.9 - Hyperglycemia, unspecified SNOMED: 56412309 (3) Pancreatitis ICD Codes: K85.90 - Acute pancreatitis without necrosis or infection, unspecified SNOMED: 32135657 (4) Renal insufficiency ICD Codes: N28.9 - Disorder of kidney and ureter, unspecified SNOMED: 328244010, 753449360 Assessment/Plan: continue Levemir 36 units qhs continue Novolog 12 units ac tid continue NISS ac / hs she will most likely stay on insulin after DC Subjective Allergies: Coded Allergies: No Known Allergies (Unverified , 01/04/19) All Systems: reviewed and negative except above Subjective events noted fasting glucose improved Item Value Date Time Bedside Blood Glucose 188 mg/dl H 01/09/19 0619 Bedside Blood Glucose 277 mg/dl H 01/08/19 2036 Bedside Blood Glucose 249 mg/dl H 01/08/19 1711 Bedside Blood Glucose 317 mg/dl H 01/08/19 1219 Bedside Blood Glucose 370 mg/dl H 01/08/19 0600 Objective Last 24 Hour Vital Signs Date Time Temp Pulse Resp B/P (MAP) Pulse Ox O2 Delivery O2 Flow Rate FiO2 01/09/19 04:00 97.7 63 18 122/73 (89) 97 01/09/19 00:00 97.0 60 18 125/67 (86) 98 01/08/19 21:00 Room Air 01/08/19 20:00 97.9 74 18 119/60 (79) 95 01/08/19 19:21 101.2 01/08/19 18:48 101.2 01/08/19 16:00 100.0 79 20 134/72 (92) 95 01/08/19 12:00 98.4 67 18 143/72 (95) 97 01/08/19 09:00 Room Air 01/08/19 08:41 120/66 01/08/19 08:00 99.4 68 19 120/66 (84) 95 Intake and Output 01/08/19 01/09/19 19:00 07:00 Intake Total 1160 ml 840 ml Balance 1160 ml 840 ml Intake Oral 300 ml 240 ml IV Total 860 ml 600 ml # Voids 1 2 Height (Feet): 5 Height (Inches): 0.00 Weight (Pounds): 137 General Appearance: no apparent distress Neck: normal alignment Cardiovascular: normal rate Respiratory/Chest: lungs clear Abdomen: normal bowel sounds Pelvis: normal external exam Objective Current Medications Medications (Trade) Dose Ordered Sig/Lebron Route PRN Reason Start Time Stop Time Status Last Admin Dose Admin Acetaminophen (Tylenol) 650 mg Q4H PRN ORAL Prn Headache/Temp > 101 01/04/19 22:00 02/03/19 21:59 01/09/19 04:46 Calcium Carbonate (OsCal D) 1 tab BID ORAL 01/05/19 09:00 02/04/19 08:59 01/08/19 17:53 Captopril (Capoten) 25 mg Q24HRS ORAL 01/05/19 09:00 02/04/19 08:59 01/08/19 08:41 Ceftriaxone Sodium 1 gm/ Dextrose 55 ml @ 110 mls/hr DAILY IVPB 01/05/19 12:00 01/12/19 11:59 01/08/19 08:41 Dextrose (Dextrose 50%) 25 ml Q30M PRN IV Hypoglycemia 01/07/19 18:00 02/06/19 17:59 Dextrose (Dextrose 50%) 50 ml Q30M PRN IV Hypoglycemia 01/07/19 18:00 02/06/19 17:59 Ferrous Sulfate (Feosol) 325 mg TWICE A DAY ORAL 01/05/19 09:00 02/04/19 08:59 01/08/19 17:53 Heparin Sodium (Porcine) (Heparin 5000 units/ml) 5,000 units EVERY 12 HOURS SUBQ 01/07/19 16:45 02/06/19 16:44 01/08/19 20:36 Insulin Aspart (NovoLOG) BEFORE MEALS AND HS SUBQ 01/05/19 06:30 02/04/19 06:29 01/09/19 06:19 Insulin Aspart (NovoLOG) 12 units NOVOTIAC SUBQ 01/08/19 16:50 02/06/19 18:29 01/09/19 06:19 Insulin Detemir (Levemir) 36 units BEDTIME SUBQ 01/08/19 21:00 02/06/19 20:59 01/08/19 20:36 Iopamidol (Isovue-300 100ml) 100 ml NOW PRN INJ Radiology Procedure 01/04/19 17:15 Morphine Sulfate (Morphine Sulfate) 3 mg Q3H PRN IVP Moderate Pain (Pain Scale 4-6) 01/04/19 21:45 01/11/19 21:44 01/08/19 02:24 Morphine Sulfate (Morphine Sulfate) 5 mg Q3H PRN IVP Severe Pain (Pain Scale 7-10) 01/04/19 21:45 01/11/19 21:44 01/08/19 19:56 Ondansetron HCl (Zofran) 4 mg Q4H PRN IVP Nausea & Vomiting 01/04/19 21:45 02/03/19 21:44 01/06/19 21:54 Patient Own Medication (Patient's Own Med) 1 ea DAILY@1800 ORAL 01/07/19 18:00 02/04/19 20:59 01/08/19 17:53 Pravastatin Sodium (Pravachol) 40 mg BEDTIME ORAL 01/04/19 21:45 02/03/19 21:44 01/08/19 20:32 Sodium Chloride 1,000 ml @ 75 mls/hr [id number] IV 01/04/19 21:45 02/03/19 21:44 01/08/19 19:28 Vitamin B Complex (Vitamin B Complex) 1 tab DAILY ORAL 01/05/19 09:00 02/04/19 08:59 01/08/19 08:41 Jaxson Payne MD Jan 09, 2019 06:27
[2019-01-09 08:00] VITALS: BP 136/65
[2019-01-09] MEDS: Vitamin B Complex Tab ORAL SCH (09:31)
[2019-01-09] MEDS: cefTRIAXone 1 GM in D5W 55 ML IVPB SCH (09:31)
[2019-01-09] MEDS: Calcium Carbonate 500mg w/Vit D 200iu tab ORAL SCH ×2 (09:31→17:49)
[2019-01-09] MEDS: Captopril 25mg tab ORAL SCH (09:32)
[2019-01-09] MEDS: Heparin 5000 units/ml inj SUBQ SCH ×2 (09:34→20:46)
--- NOTE | 2019-01-09 11:47 | General Progress Note ---
Assessment/Plan Problem List: (1) ARF (acute renal failure) ICD Codes: N17.9 - Acute kidney failure, unspecified SNOMED: 86662781 (2) Hyponatremia ICD Codes: E87.1 - Hypo-osmolality and hyponatremia SNOMED: 55121936 (3) Hyperglycemia ICD Codes: R73.9 - Hyperglycemia, unspecified SNOMED: 20971907 (4) UTI (urinary tract infection) ICD Codes: N39.0 - Urinary tract infection, site not specified SNOMED: 77475410 (5) Right ankle effusion ICD Codes: M25.471 - Effusion, right ankle SNOMED: 042509093 Assessment/Plan: Continue antibiotics Follow labs Await rheumatology consult Discussed with family and RN Subjective Allergies: Coded Allergies: No Known Allergies (Unverified , 01/04/19) Subjective Patient has still swelling and redness over the lateral malleolus of right ankle Objective Last 24 Hour Vital Signs Date Time Temp Pulse Resp B/P (MAP) Pulse Ox O2 Delivery O2 Flow Rate FiO2 01/09/19 09:32 136/65 01/09/19 09:00 Room Air 01/09/19 08:00 98.9 69 18 136/65 (88) 95 01/09/19 04:00 97.7 63 18 122/73 (89) 97 01/09/19 00:00 97.0 60 18 125/67 (86) 98 01/08/19 21:00 Room Air 01/08/19 20:00 97.9 74 18 119/60 (79) 95 01/08/19 19:21 101.2 01/08/19 18:48 101.2 01/08/19 16:00 100.0 79 20 134/72 (92) 95 01/08/19 12:00 98.4 67 18 143/72 (95) 97 Intake and Output 01/08/19 01/09/19 19:00 07:00 Intake Total 1160 ml 1065 ml Balance 1160 ml 1065 ml Intake Oral 300 ml 240 ml IV Total 860 ml 825 ml # Voids 1 2 Laboratory Tests 01/09/19 05:40: Erythrocyte Sedimentation Rate 114H, Uric Acid 3.8 Height (Feet): 5 Height (Inches): 0.00 Weight (Pounds): 137 Cardiovascular: normal rate Respiratory/Chest: lungs clear Extremities: other - Right malleolus swelling and redness Walker Kaminski MD Jan 09, 2019 11:47
--- NOTE | 2019-01-09 11:50 | Infectious Diseases Prog Note ---
Assessment/Plan Assessment/Plan IMPRESSION: HIV on Triumeq mild pyuria, may have UTI, mild pancreatitis, diabetes with hyperglycemia. Electronic imbalance was corrected. . Acute renal failure that is improving. Ankle edema, X ray & venous duplex are negative RECOMMENDATION: Continue ceftriaxone Add IV Vancomycin Continue ART Agree with associate field service engineer evaluation Subjective ROS Limited/Unobtainable: No Constitutional: Reports: fever, other - ladi=844.2 Respiratory: Reports: no symptoms Cardiovascular: Reports: no symptoms Gastrointestinal/Abdominal: Reports: no symptoms Genitourinary: Reports: no symptoms Musculoskeletal: Reports: pain, other - pain & Swelling of R ankle Allergies: Coded Allergies: No Known Allergies (Unverified , 01/04/19) Objective Vital Signs Last 24 Hour Vital Signs Date Time Temp Pulse Resp B/P (MAP) Pulse Ox O2 Delivery O2 Flow Rate FiO2 01/09/19 09:32 136/65 01/09/19 09:00 Room Air 01/09/19 08:00 98.9 69 18 136/65 (88) 95 01/09/19 04:00 97.7 63 18 122/73 (89) 97 01/09/19 00:00 97.0 60 18 125/67 (86) 98 01/08/19 21:00 Room Air 01/08/19 20:00 97.9 74 18 119/60 (79) 95 01/08/19 19:21 101.2 01/08/19 18:48 101.2 01/08/19 16:00 100.0 79 20 134/72 (92) 95 01/08/19 12:00 98.4 67 18 143/72 (95) 97 Height (Feet): 5 Height (Inches): 0.00 Weight (Pounds): 137 General Appearance: no acute distress HEENT: mucous membranes moist Respiratory/Chest: lungs clear Cardiovascular: normal rate Abdomen: soft, non tender Extremities: other - R ankle effusion & tenderness Neurologic/Psychiatric: alert, oriented x 3, responsive Laboratory Tests Test 01/09/19 05:40 Erythrocyte Sedimentation Rate 114 MM/HR (0-30) H Uric Acid 3.8 MG/DL (2.6-7.2) Current Medications Medications (Trade) Dose Ordered Sig/Lebron Route PRN Reason Start Time Stop Time Status Last Admin Dose Admin Acetaminophen (Tylenol) 650 mg Q4H PRN ORAL Prn Headache/Temp > 101 4/20/19 22:00 02/03/19 21:59 01/09/19 04:46 Calcium Carbonate (OsCal D) 1 tab BID ORAL 01/05/19 09:00 02/04/19 08:59 01/09/19 09:31 Captopril (Capoten) 25 mg Q24HRS ORAL 01/05/19 09:00 02/04/19 08:59 01/09/19 09:32 Ceftriaxone Sodium 1 gm/ Dextrose 55 ml @ 110 mls/hr DAILY IVPB 01/05/19 12:00 01/12/19 11:59 01/09/19 09:31 Dextrose (Dextrose 50%) 25 ml Q30M PRN IV Hypoglycemia 01/07/19 18:00 02/06/19 17:59 Dextrose (Dextrose 50%) 50 ml Q30M PRN IV Hypoglycemia 01/07/19 18:00 02/06/19 17:59 Ferrous Sulfate (Feosol) 325 mg TWICE A DAY ORAL 01/05/19 09:00 02/04/19 08:59 01/09/19 09:31 Heparin Sodium (Porcine) (Heparin 5000 units/ml) 5,000 units EVERY 12 HOURS SUBQ 01/07/19 16:45 02/06/19 16:44 01/09/19 09:34 Insulin Aspart (NovoLOG) BEFORE MEALS AND HS SUBQ 01/05/19 06:30 02/04/19 06:29 01/09/19 06:19 Insulin Aspart (NovoLOG) 12 units NOVOTIAC SUBQ 01/08/19 16:50 02/06/19 18:29 01/09/19 06:19 Insulin Detemir (Levemir) 36 units BEDTIME SUBQ 01/08/19 21:00 02/06/19 20:59 01/08/19 20:36 Iopamidol (Isovue-300 100ml) 100 ml NOW PRN INJ Radiology Procedure 01/04/19 17:15 Morphine Sulfate (Morphine Sulfate) 3 mg Q3H PRN IVP Moderate Pain (Pain Scale 4-6) 01/04/19 21:45 01/11/19 21:44 01/08/19 02:24 Morphine Sulfate (Morphine Sulfate) 5 mg Q3H PRN IVP Severe Pain (Pain Scale 7-10) 01/04/19 21:45 01/11/19 21:44 01/08/19 19:56 Ondansetron HCl (Zofran) 4 mg Q4H PRN IVP Nausea & Vomiting 01/04/19 21:45 02/03/19 21:44 01/06/19 21:54 Patient Own Medication (Patient's Own Med) 1 ea DAILY@1800 ORAL 01/07/19 18:00 02/04/19 20:59 01/08/19 17:53 Pravastatin Sodium (Pravachol) 40 mg BEDTIME ORAL 01/04/19 21:45 02/03/19 21:44 01/08/19 20:32 Sodium Chloride 1,000 ml @ 75 mls/hr [id number] IV 01/04/19 21:45 02/03/19 21:44 01/09/19 09:31 Vitamin B Complex (Vitamin B Complex) 1 tab DAILY ORAL 01/05/19 09:00 02/04/19 08:59 01/09/19 09:31 Quinton Kaminski MD Jan 09, 2019 11:50
[2019-01-09 12:00] VITALS: BP 145/67
--- NOTE | 2019-01-09 12:08 | Diagnostic Imaging Report ---
APPROVED REPORT CPT Code: 41570 Present Symptoms Comments: RIGHT LEG PAIN. RIGHT LEG: Venous imaging reveals a patent deep venous system. There is no evidence of thrombus within the femoral, popliteal or tibial segments. The greater saphenous vein is also within normal limits. Doppler indicates normal spontaneous flow within these segments.
[2019-01-09] MEDS: Vancomycin 500mg/D5W 110ml IVPB SCH ×2 (13:28)
[2019-01-09 16:00] VITALS: BP 127/63
[2019-01-09] MEDS: TRIUMEQ ORAL SCH (17:53)
[2019-01-09 20:00] VITALS: BP 121/58
[2019-01-09] MEDS: Levemir Flexpen SUBQ SCH (20:49)
[2019-01-09] MEDS: Morphine Sulfate 10mg/ml Inj IVP PRN (20:53)
[2019-01-10] VITALS: BP 99/52
[2019-01-10] MEDS: Vancomycin 500mg/D5W 110ml IVPB SCH ×4 (02:15→14:09)
[2019-01-10 04:00] VITALS: BP 110/51
[2019-01-10] MEDS ORDERED: Gadavist 7.5mMol/7.5ml vial IV PRN (04:00)
[2019-01-10] MEDS: NovoLOG Insulin Flexpen SUBQ SCH ×7 (06:26→22:07)
--- NOTE | 2019-01-10 06:42 | General Progress Note ---
Assessment/Plan Problem List: (1) Diabetes mellitus out of control ICD Codes: E11.65 - Type 2 diabetes mellitus with hyperglycemia SNOMED: 21096757, 856928168 (2) Hyperglycemia ICD Codes: R73.9 - Hyperglycemia, unspecified SNOMED: 54743359 (3) Pancreatitis ICD Codes: K85.90 - Acute pancreatitis without necrosis or infection, unspecified SNOMED: 07812483 (4) Renal insufficiency ICD Codes: N28.9 - Disorder of kidney and ureter, unspecified SNOMED: 310186144, 865555247 Assessment/Plan: continue Levemir 36 units qhs continue Novolog 12 units ac tid continue NISS ac / hs she will most likely stay on insulin after DC Subjective Allergies: Coded Allergies: No Known Allergies (Unverified , 01/04/19) All Systems: reviewed and negative except above Subjective events noted fasting glucose improved Item Value Date Time Bedside Blood Glucose 160 mg/dl H 01/10/19 0627 Bedside Blood Glucose 212 mg/dl H 01/09/19 2100 Bedside Blood Glucose 319 mg/dl H 01/09/19 1751 Bedside Blood Glucose 250 mg/dl H 01/09/19 1206 Bedside Blood Glucose 188 mg/dl H 01/09/19 0619 Objective Last 24 Hour Vital Signs Date Time Temp Pulse Resp B/P (MAP) Pulse Ox O2 Delivery O2 Flow Rate FiO2 01/10/19 04:00 97.6 60 20 110/51 (70) 96 01/10/19 00:00 98.5 62 20 99/52 (68) 95 01/09/19 21:15 98.5 01/09/19 21:00 Room Air 01/09/19 20:00 100.6 74 20 121/58 (79) 97 01/09/19 16:00 100.2 73 19 127/63 (84) 96 01/09/19 12:00 98.0 61 17 145/67 (93) 93 01/09/19 09:32 136/65 01/09/19 09:00 Room Air 01/09/19 08:00 98.9 69 18 136/65 (88) 95 Intake and Output 01/09/19 01/10/19 19:00 07:00 Intake Total 300 ml Balance 300 ml Intake Oral 300 ml # Voids 4 2 Laboratory Tests 01/10/19 05:45: Erythrocyte Sedimentation Rate [Pending], Uric Acid [Pending], C-Reactive Protein, Quantitative [Pending], Triglycerides Level [Pending], Cholesterol Level [Pending], LDL Cholesterol [Pending], HDL Cholesterol [Pending], Cholesterol/HDL Ratio [Pending], Amylase Level [Pending], Lipase [Pending], Vitamin D 25-Hydroxy [Pending], 25-Hydroxy Vitamin D2 [Pending], 25-Hydroxy Vitamin D3 [Pending], Rheumatoid Factor Screen [Pending], Anti-Nuclear Antibody Screen [Pending] Height (Feet): 5 Height (Inches): 0.00 Weight (Pounds): 137 General Appearance: no apparent distress Neck: normal alignment Respiratory/Chest: chest wall non-tender Abdomen: normal bowel sounds Pelvis: normal external exam Edema: no edema noted Arm (L), no edema noted Arm (R), no edema noted Leg (L), no edema noted Leg (R), no edema noted Pedal (L), no edema noted Pedal (R), no edema noted Generalized Objective Current Medications Medications (Trade) Dose Ordered Sig/Lebron Route PRN Reason Start Time Stop Time Status Last Admin Dose Admin Acetaminophen (Tylenol) 650 mg Q4H PRN ORAL Prn Headache/Temp > 101 01/04/19 22:00 02/03/19 21:59 01/09/19 20:45 Calcium Carbonate (OsCal D) 1 tab BID ORAL 01/05/19 09:00 02/04/19 08:59 01/09/19 17:49 Captopril (Capoten) 25 mg Q24HRS ORAL 01/05/19 09:00 02/04/19 08:59 01/09/19 09:32 Ceftriaxone Sodium 1 gm/ Dextrose 55 ml @ 110 mls/hr DAILY IVPB 01/05/19 12:00 01/12/19 11:59 01/09/19 09:31 Dextrose (Dextrose 50%) 25 ml Q30M PRN IV Hypoglycemia 01/07/19 18:00 02/06/19 17:59 Dextrose (Dextrose 50%) 50 ml Q30M PRN IV Hypoglycemia 01/07/19 18:00 02/06/19 17:59 Ferrous Sulfate (Feosol) 325 mg TWICE A DAY ORAL 01/05/19 09:00 02/04/19 08:59 01/09/19 17:49 Gadobutrol (Gadavist) 7.5 mmol NOW PRN IV Radiology Procedure 01/10/19 04:00 01/14/19 03:50 Heparin Sodium (Porcine) (Heparin 5000 units/ml) 5,000 units EVERY 12 HOURS SUBQ 01/07/19 16:45 02/06/19 16:44 01/09/19 20:46 Insulin Aspart (NovoLOG) BEFORE MEALS AND HS SUBQ 01/05/19 06:30 02/04/19 06:29 01/10/19 06:26 Insulin Aspart (NovoLOG) 12 units NOVOTIAC SUBQ 01/08/19 16:50 02/06/19 18:29 01/10/19 06:27 Insulin Detemir (Levemir) 36 units BEDTIME SUBQ 01/08/19 21:00 02/06/19 20:59 01/09/19 20:49 Iopamidol (Isovue-300 100ml) 100 ml NOW PRN INJ Radiology Procedure 01/04/19 17:15 Morphine Sulfate (Morphine Sulfate) 3 mg Q3H PRN IVP Moderate Pain (Pain Scale 4-6) 01/04/19 21:45 01/11/19 21:44 01/08/19 02:24 Morphine Sulfate (Morphine Sulfate) 5 mg Q3H PRN IVP Severe Pain (Pain Scale 7-10) 01/04/19 21:45 01/11/19 21:44 01/09/19 20:53 Ondansetron HCl (Zofran) 4 mg Q4H PRN IVP Nausea & Vomiting 01/04/19 21:45 02/03/19 21:44 01/06/19 21:54 Patient Own Medication (Patient's Own Med) 1 ea DAILY@1800 ORAL 01/07/19 18:00 02/04/19 20:59 01/09/19 17:53 Pravastatin Sodium (Pravachol) 40 mg BEDTIME ORAL 01/04/19 21:45 02/03/19 21:44 01/09/19 20:45 Sodium Chloride 1,000 ml @ 75 mls/hr [id number] IV 01/04/19 21:45 02/03/19 21:44 01/10/19 00:50 Tuberculin PPD (Tubersol (PPD)) 0.1 ml ONCE ONCE IDERMAL 01/10/19 09:00 01/10/19 09:01 Vancomycin HCl (Vanco rx to dose) 1 ea DAILY PRN MISC Per rx protocol 01/09/19 12:00 02/08/19 11:59 Vancomycin HCl 500 mg/Dextrose 110 ml @ 110 mls/hr Q12HR@0200,1400 IVPB 01/09/19 14:00 01/14/19 13:59 01/10/19 02:15 Vitamin B Complex (Vitamin B Complex) 1 tab DAILY ORAL 01/05/19 09:00 02/04/19 08:59 01/09/19 09:31 Jaxson Payne MD Jan 10, 2019 06:42
[2019-01-10 07:02] LABS: AMYLASE 31 U/L (25-115); CHOLESTEROL 101 MG/DL (< 200); HDL CHOLESTEROL 35 MG/DL (40-60); TRIGLYCERIDES 100 MG/DL (30-150)
[2019-01-10 08:00] VITALS: BP 132/64
[2019-01-10] MEDS ORDERED: PPD Tuberculin Skin Test 5TU IDERMAL ONE (09:00)
[2019-01-10] MEDS: cefTRIAXone 1 GM in D5W 55 ML IVPB SCH (09:56)
[2019-01-10] MEDS: Heparin 5000 units/ml inj SUBQ SCH ×2 (09:56→21:31)
[2019-01-10] MEDS: Vitamin B Complex Tab ORAL SCH (09:57)
[2019-01-10] MEDS: Captopril 25mg tab ORAL SCH (09:57)
[2019-01-10] MEDS: Calcium Carbonate 500mg w/Vit D 200iu tab ORAL SCH ×2 (09:57→17:13)
--- NOTE | 2019-01-10 11:18 | General Progress Note ---
Assessment/Plan Problem List: (1) ARF (acute renal failure) ICD Codes: N17.9 - Acute kidney failure, unspecified SNOMED: 31622627 (2) Hyponatremia ICD Codes: E87.1 - Hypo-osmolality and hyponatremia SNOMED: 76525900 (3) Hyperglycemia ICD Codes: R73.9 - Hyperglycemia, unspecified SNOMED: 73301400 (4) UTI (urinary tract infection) ICD Codes: N39.0 - Urinary tract infection, site not specified SNOMED: 59922596 (5) Right ankle effusion ICD Codes: M25.471 - Effusion, right ankle SNOMED: 836039157 Assessment/Plan: Continue antibiotics Discussed with dr Larson and dr Vipul Kaminski await bone scan Discussed with family and RN Subjective Allergies: Coded Allergies: No Known Allergies (Unverified , 01/04/19) Subjective Patient has still swelling and redness over the lateral malleolus of right ankle Objective Last 24 Hour Vital Signs Date Time Temp Pulse Resp B/P (MAP) Pulse Ox O2 Delivery O2 Flow Rate FiO2 01/10/19 09:57 132/64 01/10/19 08:00 98.2 71 18 132/64 (86) 92 01/10/19 04:00 97.6 60 20 110/51 (70) 96 01/10/19 00:00 98.5 62 20 99/52 (68) 95 01/09/19 21:15 98.5 01/09/19 21:00 Room Air 01/09/19 20:00 100.6 74 20 121/58 (79) 97 01/09/19 16:00 100.2 73 19 127/63 (84) 96 01/09/19 12:00 98.0 61 17 145/67 (93) 93 Intake and Output 01/09/19 01/10/19 19:00 07:00 Intake Total 300 ml Balance 300 ml Intake Oral 300 ml # Voids 4 2 Laboratory Tests 01/10/19 05:45: Erythrocyte Sedimentation Rate 121H, Uric Acid 4.1, C-Reactive Protein, Quantitative 24.6H, Triglycerides Level 100, Cholesterol Level 101, LDL Cholesterol 51, HDL Cholesterol 35L, Cholesterol/HDL Ratio 2.9L, Amylase Level 31, Lipase 102, Vitamin D 25-Hydroxy [Pending], 25-Hydroxy Vitamin D2 [Pending] , 25-Hydroxy Vitamin D3 [Pending], Rheumatoid Factor Screen [Pending], Anti- Nuclear Antibody Screen [Pending] Height (Feet): 5 Height (Inches): 0.00 Weight (Pounds): 137 Cardiovascular: normal rate Respiratory/Chest: lungs clear Walker Kaminski MD Jan 10, 2019 11:17
[2019-01-10 12:00] VITALS: BP 145/76
--- NOTE | 2019-01-10 12:00 | Infectious Diseases Prog Note ---
Assessment/Plan Assessment/Plan IMPRESSION: HIV on Triumeq mild pyuria, may have UTI, mild pancreatitis, diabetes with hyperglycemia. Electronic imbalance was corrected. . Acute renal failure that is improving. Ankle edema, X ray & venous duplex are negative RECOMMENDATION: Continue ceftriaxone & IV Vancomycin Continue ART CXR Subjective ROS Limited/Unobtainable: Yes Respiratory: Reports: no symptoms Cardiovascular: Reports: no symptoms Gastrointestinal/Abdominal: Reports: no symptoms Musculoskeletal: Reports: pain, other - right ankle pain Allergies: Coded Allergies: No Known Allergies (Unverified , 01/04/19) Objective Vital Signs Last 24 Hour Vital Signs Date Time Temp Pulse Resp B/P (MAP) Pulse Ox O2 Delivery O2 Flow Rate FiO2 01/10/19 09:57 132/64 01/10/19 08:00 98.2 71 18 132/64 (86) 92 01/10/19 04:00 97.6 60 20 110/51 (70) 96 01/10/19 00:00 98.5 62 20 99/52 (68) 95 01/09/19 21:15 98.5 01/09/19 21:00 Room Air 01/09/19 20:00 100.6 74 20 121/58 (79) 97 01/09/19 16:00 100.2 73 19 127/63 (84) 96 01/09/19 12:00 98.0 61 17 145/67 (93) 93 Height (Feet): 5 Height (Inches): 0.00 Weight (Pounds): 137 General Appearance: no acute distress HEENT: mucous membranes moist Respiratory/Chest: lungs clear Cardiovascular: normal rate Abdomen: soft, non tender Extremities: other - right ankle swelling & tenderness Laboratory Tests Test 01/10/19 05:45 Erythrocyte Sedimentation Rate 121 MM/HR (0-30) H Uric Acid 4.1 MG/DL (2.6-7.2) C-Reactive Protein, Quantitative 24.6 mg/dL (0.00-0.90) H Triglycerides Level 100 MG/DL (30-150) Cholesterol Level 101 MG/DL (< 200) LDL Cholesterol 51 mg/dL (<100) HDL Cholesterol 35 MG/DL (40-60) L Cholesterol/HDL Ratio 2.9 (3.3-4.4) L Amylase Level 31 U/L (25-115) Lipase 102 U/L (73-393) Vitamin D 25-Hydroxy Pending 25-Hydroxy Vitamin D2 Pending 25-Hydroxy Vitamin D3 Pending Rheumatoid Factor Screen Pending Anti-Nuclear Antibody Screen Pending Current Medications Medications (Trade) Dose Ordered Sig/Lebron Route PRN Reason Start Time Stop Time Status Last Admin Dose Admin Acetaminophen (Tylenol) 650 mg Q4H PRN ORAL Prn Headache/Temp > 101 01/04/19 22:00 02/03/19 21:59 01/09/19 20:45 Calcium Carbonate (OsCal D) 1 tab BID ORAL 01/05/19 09:00 02/04/19 08:59 01/10/19 09:57 Captopril (Capoten) 25 mg Q24HRS ORAL 01/05/19 09:00 02/04/19 08:59 01/10/19 09:57 Ceftriaxone Sodium 1 gm/ Dextrose 55 ml @ 110 mls/hr DAILY IVPB 01/05/19 12:00 01/12/19 11:59 01/10/19 09:56 Dextrose (Dextrose 50%) 25 ml Q30M PRN IV Hypoglycemia 01/07/19 18:00 02/06/19 17:59 Dextrose (Dextrose 50%) 50 ml Q30M PRN IV Hypoglycemia 01/07/19 18:00 02/06/19 17:59 Ferrous Sulfate (Feosol) 325 mg TWICE A DAY ORAL 01/05/19 09:00 02/04/19 08:59 01/10/19 09:57 Gadobutrol (Gadavist) 7.5 mmol NOW PRN IV Radiology Procedure 01/10/19 04:00 01/14/19 03:50 Heparin Sodium (Porcine) (Heparin 5000 units/ml) 5,000 units EVERY 12 HOURS SUBQ 01/07/19 16:45 02/06/19 16:44 01/10/19 09:56 Insulin Aspart (NovoLOG) BEFORE MEALS AND HS SUBQ 01/05/19 06:30 02/04/19 06:29 01/10/19 06:26 Insulin Aspart (NovoLOG) 12 units NOVOTIAC SUBQ 01/08/19 16:50 02/06/19 18:29 01/10/19 06:27 Insulin Detemir (Levemir) 36 units BEDTIME SUBQ 01/08/19 21:00 02/06/19 20:59 01/09/19 20:49 Iopamidol (Isovue-300 100ml) 100 ml NOW PRN INJ Radiology Procedure 01/04/19 17:15 Morphine Sulfate (Morphine Sulfate) 3 mg Q3H PRN IVP Moderate Pain (Pain Scale 4-6) 01/04/19 21:45 01/11/19 21:44 01/08/19 02:24 Morphine Sulfate (Morphine Sulfate) 5 mg Q3H PRN IVP Severe Pain (Pain Scale 7-10) 01/04/19 21:45 01/11/19 21:44 01/09/19 20:53 Ondansetron HCl (Zofran) 4 mg Q4H PRN IVP Nausea & Vomiting 01/04/19 21:45 02/03/19 21:44 01/06/19 21:54 Patient Own Medication (Patient's Own Med) 1 ea DAILY@1800 ORAL 01/07/19 18:00 02/04/19 20:59 01/09/19 17:53 Pravastatin Sodium (Pravachol) 40 mg BEDTIME ORAL 01/04/19 21:45 02/03/19 21:44 01/09/19 20:45 Sodium Chloride 1,000 ml @ 75 mls/hr [id number] IV 01/04/19 21:45 02/03/19 21:44 01/10/19 00:50 Vancomycin HCl (Vanco rx to dose) 1 ea DAILY PRN MISC Per rx protocol 01/09/19 12:00 02/08/19 11:59 Vancomycin HCl 500 mg/Dextrose 110 ml @ 110 mls/hr Q12HR@0200,1400 IVPB 01/09/19 14:00 01/14/19 13:59 01/10/19 02:15 Vitamin B Complex (Vitamin B Complex) 1 tab DAILY ORAL 01/05/19 09:00 02/04/19 08:59 01/10/19 09:57 Quinton Kaminski MD Jan 10, 2019 12:00
--- NOTE | 2019-01-10 14:35 | Diagnostic Imaging Report ---
Indication: TB screening Comparison: None A single view chest radiograph was obtained. Findings: Mild linear densities demonstrated at the lung bases likely atelectasis. Borderline cardiomegaly is present. There is some prominence of the pulmonary interstitium. No pleural or parenchymal calcifications are identified. Bones are osteopenic. IMPRESSION: Basilar atelectasis. Interstitial prominence nonspecific. Some degree of mild interstitial edema not excludable. Correlate clinically
[2019-01-10 16:00] VITALS: BP 129/68
[2019-01-10] MEDS: TRIUMEQ ORAL SCH (17:13)
[2019-01-10 20:00] VITALS: BP 123/68
[2019-01-10] MEDS: Morphine Sulfate 4mg/ml Inj (IV USE ONLY) IVP PRN (21:04)
[2019-01-10] MEDS ORDERED: NovoLOG Insulin Flexpen SUBQ ONE (21:50)
[2019-01-10] MEDS: Levemir Flexpen SUBQ SCH (22:06)
[2019-01-11] VITALS (7 sets, daily range): BP systolic 97–138; BP diastolic 52–72
--- NOTE | 2019-01-11 01:30 | Consultation ---
DATE OF CONSULTATION: 01/10/2019 CONSULTING PHYSICIAN: Patrizia Larson M.D. REASON FOR CONSULTATION: I was asked by Dr. Walker Kaminski to assess this 73-year-old because of long-standing history of right ankle swelling for the last 12 months. HISTORY OF PRESENT ILLNESS: The patient's history started in October of 2017, the patient developed progressively and slowly swelling and tenderness of the left ankle. In spite of this symptom, she was able to ambulate without assisting device and continue with regular life. She did not seek medical consultation till January of 2019 during which she underwent x-ray and laboratory tests, which were all negative. No treatment was initiated and the patient continued to ambulate with mild swelling. The swelling did not resolve. Qlza-kz-awphuiku pain remained that increased with weightbearing, which was good enough to go for treatments from July to September to [facility]. The patient remained active. Participated in the family life. that she came back from [place] over the next 8 weeks, she became unable to bear weight and ambulate. She was transferred to [facility] ER and was admitted. She is difficult to give history. The patient had similar symptom in the left ankle 6 years ago. This time, the joint was swollen and skin hypersensitivity could not touched. She was admitted to [facility] and stayed there for 5 months. During this time, she underwent multiple investigative assessments that include skin biopsy that was negative, tap of the joint, which was negative, multiple x-rays, and other tests that are all negative. 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 She was placed in isolation. Other sites of TB were sort and none was identified according to the 3 daughters of the patient. She was placed for 18 months or so on anti-TB medication and possibility of malignancy was assessed with every 3 months for recurrence of TB. The progressive onset in the left ankle was similar to the one that was . PAST MEDICAL HISTORY: Mainly is the patient in good health. She had right breast biopsy, which was not malignant and known to have HIV at the age of 70. She has been on multiple p.r.n. medications. She is now on thiamine once daily that she tolerates well. No other past medical or surgical history. The patient is also known to have diabetes mellitus for which she has been on metformin only with poor glucose control. Her A1c on admission was 13 and blood sugar was 500. Inspite of those, the patient was highly functional till she was unable to bear weight. FAMILY HISTORY: Her father when she was 5. She does not know the cause of . Her mother in her 80. She has 2 brothers with Alzheimer disease. She has 6 daughters, all of them have diabetes mellitus. One daughter has fatty liver. HABITS: The patient does not smoke, drink, or use illicit drugs. REVIEW OF SYSTEMS: CARDIOVASCULAR: The patient denied any chest pain, shortness of breath, palpitations, or dizziness. PULMONARY: The patient denied any cough, wheezing, or expectoration. GASTROINTESTINAL: Her appetite is moderate. Her weight is stable. She has no dysphagia. No dyspepsia. No bowel movement disorder. GENITOURINARY: The patient denies any dysuria, frequency, incontinence, or nocturia. JOINTS: In addition to the right ankle, she has no pain, swelling, stiffness, cold extremities, photosensitivity, dry eyes, or alopecia. CENTRAL NERVOUS SYSTEM: Sleep is of good quality. She has no numbness, tingling, seizure disorder, and has no headaches. PHYSICAL EXAMINATION: VITAL SIGNS: Her blood pressure is 121/58, her pulse is 74, respirations are 20, her temperature was 100.6. HEENT: Eyes were normal. Pupils were round, equal, and reactive to light. Sclerae were white. Conjunctivae were pink. Extraocular movements were normal. Temporal arteries were palpable bilaterally. There was no bilateral temporal wasting. Visual almeida to confrontation were normal. Neglect sign was negative. ENT, mucous membranes were not dehydrated. Auditory canals were clear and tympanic membranes could not be visualized. Nasal cavity was not congested. Nasal septum was intact. Soft palate was free of ulcerations. Pharynx was free from exudate or tonsillar hypertrophy. Uvula juana to phonation. Tongue was moist, midline, and normally papillated. NECK: Supple. There was no goiter. No mass. No lymphadenopathy. There was no JVD or bruits. Carotid upstroke was 2+. LUNGS: Clear. HEART: PMI was in the fourth left intercostal space in midclavicular line. Normal S1 and normal S2. There was no murmur. No arrhythmia. No S3. No S4. No pericardial rub. ABDOMEN: Soft and nontender without organomegaly. There were no masses palpable. There were normal bowel sounds without bruits. There was no guarding. No rebound tenderness. No ascites. No hernia. No CVA tenderness. Liver span was 8 cm, mostly nontender. EXTREMITIES: No cyanosis, clubbing, or edema. Extremities were warm. NEUROLOGICAL: Reflexes in biceps, triceps, and brachioradialis were present. Patellar retinaculum on the left were present. Plantars were in flexion. Cranial nerves II through XII were symmetric and equal. Cerebellar function, there was no tremor. No nystagmus. No extrapyramidal rigidity. Sensory exam to pinprick, cotton touch, and position are grossly normal. Motor strength was 5/5 against resistance in upper extremity and left lower extremity and corresponds to age. LABORATORY DATA: Hemoglobin 4 is 12.8, hematocrit 35.9 with MCV of 89, WBC of 10.6, and platelets of 342. Her BUN and creatinine are 12 and 1.3 respectively. Her sodium is 133, potassium 3.6, chloride 104, CO2 is 22. Her calcium was 8.6 and glucose was 208. Her blood sugar is increased from 341 to 528. Sed rate is 114. The patient has 3 imaging studies. She had venous duplex scan, which was negative. She had , which was unremarkable. Diagnostic tests unavailable. IMPRESSION AND PLAN: The patient had a bone debris middle phalanx, noted to have symptoms substantially increased after returning from [place] complicating the case. Infectious disease group segment consultant is on the case and source of debris could not be ignored. 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 Thank you, Dr. Kaminski, for allowing me to participate in this challenging case. Patrizia Larson M.D. DR: YADIEL JOB#: [id number] CC:
[2019-01-11] MEDS: Vancomycin 500mg/D5W 110ml IVPB SCH ×4 (01:50→14:21)
[2019-01-11] MEDS: NovoLOG Insulin Flexpen SUBQ SCH ×7 (06:31→20:52)
--- NOTE | 2019-01-11 07:56 | General Progress Note ---
Assessment/Plan Problem List: (1) Diabetes mellitus out of control ICD Codes: E11.65 - Type 2 diabetes mellitus with hyperglycemia SNOMED: 32762968, 225620577 (2) Hyperglycemia ICD Codes: R73.9 - Hyperglycemia, unspecified SNOMED: 73386057 (3) Pancreatitis ICD Codes: K85.90 - Acute pancreatitis without necrosis or infection, unspecified SNOMED: 08278253 (4) Renal insufficiency ICD Codes: N28.9 - Disorder of kidney and ureter, unspecified SNOMED: 462125702, 400571394 Assessment/Plan: increase Levemir to 40 units qhs increase Novolog to 20 units ac tid - 8 units extra x one now continue NISS ac / hs she will certainly stay on insulin regimen after DC patient family need to be instructed on how to use insulin "pen" discussed at length with RN and patient's daughter (Jennifer Jameson) at bedside patient is followed by her own endo as OP - I asked Jennifer to make a close follow up appointment Subjective Allergies: Coded Allergies: No Known Allergies (Unverified , 01/04/19) All Systems: reviewed and negative except above Subjective events noted glucose values were very high yesterday daughter at bedside and confirms the patient is not having "any food from home" her appetite is fair and she is on diabetic diet she has not received any "steroids" Item Value Date Time Bedside Blood Glucose 215 mg/dl H 01/11/19 0632 Bedside Blood Glucose 548 mg/dl H 01/10/19 2207 Bedside Blood Glucose 494 mg/dl H 01/10/19 1710 Bedside Blood Glucose 328 mg/dl H 01/10/19 1301 Objective Last 24 Hour Vital Signs Date Time Temp Pulse Resp B/P (MAP) Pulse Ox O2 Delivery O2 Flow Rate FiO2 01/11/19 04:00 97.9 67 20 116/55 (75) 99 01/11/19 00:00 98.0 68 20 97/52 (67) 97 01/10/19 21:00 Room Air 01/10/19 20:00 98.8 73 20 123/68 (86) 97 01/10/19 16:00 99.1 81 18 129/68 (88) 94 01/10/19 12:00 98.3 71 18 145/76 (99) 97 01/10/19 09:57 132/64 01/10/19 09:00 Room Air 01/10/19 08:00 98.2 71 18 132/64 (86) 92 Intake and Output 01/10/19 01/11/19 19:00 07:00 Intake Total 1530 ml 1135 ml Balance 1530 ml 1135 ml Intake Oral 780 ml 200 ml IV Total 750 ml 935 ml # Voids 3 2 Laboratory Tests 01/10/19 21:30: Glucose Level 548*H 01/11/19 01:00: Vancomycin Level Trough 10.0 Height (Feet): 5 Height (Inches): 0.00 Weight (Pounds): 137 General Appearance: no apparent distress Neck: normal alignment Cardiovascular: normal rate Respiratory/Chest: lungs clear Abdomen: normal bowel sounds Pelvis: normal external exam Edema: no edema noted Arm (L), no edema noted Arm (R), no edema noted Leg (L), no edema noted Leg (R), no edema noted Pedal (L), no edema noted Pedal (R), no edema noted Generalized Objective Current Medications Medications (Trade) Dose Ordered Sig/Lebron Route PRN Reason Start Time Stop Time Status Last Admin Dose Admin Acetaminophen (Tylenol) 650 mg Q4H PRN ORAL Prn Headache/Temp > 101 01/04/19 22:00 02/03/19 21:59 01/11/19 04:55 Calcium Carbonate (OsCal D) 1 tab BID ORAL 01/05/19 09:00 02/04/19 08:59 01/10/19 17:13 Captopril (Capoten) 25 mg Q24HRS ORAL 01/05/19 09:00 02/04/19 08:59 01/10/19 09:57 Ceftriaxone Sodium 1 gm/ Dextrose 55 ml @ 110 mls/hr DAILY IVPB 01/05/19 12:00 01/12/19 11:59 01/10/19 09:56 Dextrose (Dextrose 50%) 25 ml Q30M PRN IV Hypoglycemia 01/07/19 18:00 02/06/19 17:59 Dextrose (Dextrose 50%) 50 ml Q30M PRN IV Hypoglycemia 01/07/19 18:00 02/06/19 17:59 Ferrous Sulfate (Feosol) 325 mg TWICE A DAY ORAL 01/05/19 09:00 02/04/19 08:59 01/10/19 17:13 Gadobutrol (Gadavist) 7.5 mmol NOW PRN IV Radiology Procedure 01/10/19 04:00 01/14/19 03:50 Heparin Sodium (Porcine) (Heparin 5000 units/ml) 5,000 units EVERY 12 HOURS SUBQ 01/07/19 16:45 02/06/19 16:44 01/10/19 21:31 Insulin Aspart (NovoLOG) BEFORE MEALS AND HS SUBQ 01/05/19 06:30 02/04/19 06:29 01/11/19 06:32 Insulin Aspart (NovoLOG) 12 units NOVOTIAC SUBQ 01/08/19 16:50 02/06/19 18:29 01/11/19 06:31 Insulin Detemir (Levemir) 36 units BEDTIME SUBQ 01/08/19 21:00 02/06/19 20:59 01/10/19 22:06 Iopamidol (Isovue-300 100ml) 100 ml NOW PRN INJ Radiology Procedure 01/04/19 17:15 Morphine Sulfate (Morphine Sulfate) 3 mg Q3H PRN IVP Moderate Pain (Pain Scale 4-6) 01/04/19 21:45 01/11/19 21:44 01/10/19 21:04 Morphine Sulfate (Morphine Sulfate) 5 mg Q3H PRN IVP Severe Pain (Pain Scale 7-10) 01/04/19 21:45 01/11/19 21:44 01/09/19 20:53 Ondansetron HCl (Zofran) 4 mg Q4H PRN IVP Nausea & Vomiting 01/04/19 21:45 02/03/19 21:44 01/06/19 21:54 Patient Own Medication (Patient's Own Med) 1 ea DAILY@1800 ORAL 01/07/19 18:00 02/04/19 20:59 01/10/19 17:13 Pravastatin Sodium (Pravachol) 40 mg BEDTIME ORAL 01/04/19 21:45 02/03/19 21:44 01/10/19 21:06 Sodium Chloride 1,000 ml @ 75 mls/hr [id number] IV 01/04/19 21:45 02/03/19 21:44 01/11/19 05:01 Vancomycin HCl (Vanco rx to dose) 1 ea DAILY PRN MISC Per rx protocol 4/25/19 12:00 02/08/19 11:59 Vancomycin HCl 500 mg/Dextrose 110 ml @ 110 mls/hr Q12HR@0200,1400 IVPB 01/09/19 14:00 01/14/19 13:59 01/11/19 01:50 Vitamin B Complex (Vitamin B Complex) 1 tab DAILY ORAL 01/05/19 09:00 02/04/19 08:59 01/10/19 09:57 Jaxson Payne MD Jan 11, 2019 07:56
[2019-01-11] MEDS ORDERED: NovoLOG Insulin Flexpen SUBQ SCH (08:30)
[2019-01-11] MEDS: cefTRIAXone 1 GM in D5W 55 ML IVPB SCH (09:30)
[2019-01-11] MEDS: Calcium Carbonate 500mg w/Vit D 200iu tab ORAL SCH ×2 (09:31→18:54)
[2019-01-11] MEDS: Heparin 5000 units/ml inj SUBQ SCH ×2 (09:31→20:45)
[2019-01-11] MEDS: Vitamin B Complex Tab ORAL SCH (09:31)
[2019-01-11] MEDS: Captopril 25mg tab ORAL SCH (11:22)
--- NOTE | 2019-01-11 12:38 | General Progress Note ---
Assessment/Plan Problem List: (1) ARF (acute renal failure) ICD Codes: N17.9 - Acute kidney failure, unspecified SNOMED: 44320708 (2) Hyponatremia ICD Codes: E87.1 - Hypo-osmolality and hyponatremia SNOMED: 77785073 (3) Hyperglycemia ICD Codes: R73.9 - Hyperglycemia, unspecified SNOMED: 08290682 (4) UTI (urinary tract infection) ICD Codes: N39.0 - Urinary tract infection, site not specified SNOMED: 57989309 (5) Right ankle effusion ICD Codes: M25.471 - Effusion, right ankle SNOMED: 871056649 Assessment/Plan: Continue antibiotics Await MRI results Discussed with family and RN Adjustment for diabetes medications by Dr. Payne Subjective Allergies: Coded Allergies: No Known Allergies (Unverified , 01/04/19) Subjective Patient has still swelling and redness over the lateral malleolus of right ankle that is unchanged Objective Last 24 Hour Vital Signs Date Time Temp Pulse Resp B/P (MAP) Pulse Ox O2 Delivery O2 Flow Rate FiO2 01/11/19 11:30 98.1 63 18 124/72 (89) 97 01/11/19 11:22 124/72 01/11/19 09:23 63 106/59 (75) 01/11/19 08:00 97.8 61 16 104/57 (73) 95 01/11/19 04:00 97.9 67 20 116/55 (75) 99 01/11/19 00:00 98.0 68 20 97/52 (67) 97 01/10/19 21:00 Room Air 01/10/19 20:00 98.8 73 20 123/68 (86) 97 01/10/19 16:00 99.1 81 18 129/68 (88) 94 Intake and Output 01/10/19 01/11/19 19:00 07:00 Intake Total 1530 ml 1135 ml Balance 1530 ml 1135 ml Intake Oral 780 ml 200 ml IV Total 750 ml 935 ml # Voids 3 2 Laboratory Tests 01/10/19 21:30: Glucose Level 548*H 01/11/19 01:00: Vancomycin Level Trough 10.0 Height (Feet): 5 Height (Inches): 0.00 Weight (Pounds): 137 Cardiovascular: normal rate Respiratory/Chest: lungs clear Extremities: swelling - Right ankle still swollen Walker Hathaway MD Jan 11, 2019 12:38
[2019-01-11] MEDS: TRIUMEQ ORAL SCH (18:54)
[2019-01-11] MEDS: Miralax 17gm pkt ORAL SCH (20:45)
[2019-01-11] MEDS: Levemir Flexpen SUBQ SCH (20:51)
[2019-01-12] VITALS: BP 124/65
[2019-01-12] MEDS: Vancomycin 500mg/D5W 110ml IVPB SCH ×4 (02:01→14:34)
[2019-01-12 04:00] VITALS: BP 110/59
[2019-01-12] MEDS: NovoLOG Insulin Flexpen SUBQ SCH ×7 (06:26→21:31)
[2019-01-12] MEDS ORDERED: Morphine Sulfate 2mg/ml Inj(IV/IM USE ONLY) IVP PRN (06:45)
[2019-01-12] MEDS: Morphine Sulfate 4mg/ml Inj (IV USE ONLY) IVP PRN ×2 (06:51→12:13)
--- NOTE | 2019-01-12 07:37 | General Progress Note ---
Assessment/Plan Problem List: (1) Diabetes mellitus out of control ICD Codes: E11.65 - Type 2 diabetes mellitus with hyperglycemia SNOMED: 73607435, 819557229 (2) Hyperglycemia ICD Codes: R73.9 - Hyperglycemia, unspecified SNOMED: 19876860 (3) Pancreatitis ICD Codes: K85.90 - Acute pancreatitis without necrosis or infection, unspecified SNOMED: 18275489 (4) Renal insufficiency ICD Codes: N28.9 - Disorder of kidney and ureter, unspecified SNOMED: 912385443, 451668335 Assessment/Plan: increase Levemir to 40 units qhs increase Novolog to 20 units ac tid - 8 units extra x one now continue NISS ac / hs she will certainly stay on insulin regimen after DC patient family need to be instructed on how to use insulin "pen" discussed at length with RN and patient's daughter (Jennifer Jameson) at bedside patient is followed by her own endo as OP - I asked Jennifer to make a close follow up appointment Subjective Allergies: Coded Allergies: No Known Allergies (Unverified , 01/04/19) All Systems: reviewed and negative except above Subjective events noted glucose values improved after insulin dosages adjusted appetite is good - having breakfast now Item Value Date Time Bedside Blood Glucose 105 mg/dl 01/12/19 0644 Bedside Blood Glucose 377 mg/dl H 01/11/19 2052 Bedside Blood Glucose 298 mg/dl H 01/11/19 1719 Bedside Blood Glucose 237 mg/dl H 01/11/19 1320 Bedside Blood Glucose 301 mg/dl H 01/11/19 0835 Bedside Blood Glucose 215 mg/dl H 01/11/19 0632 Objective Last 24 Hour Vital Signs Date Time Temp Pulse Resp B/P (MAP) Pulse Ox O2 Delivery O2 Flow Rate FiO2 01/12/19 04:00 99.0 70 18 110/59 (76) 98 01/12/19 00:00 98.5 67 18 124/65 (84) 99 01/11/19 21:00 Room Air 01/11/19 20:00 99.3 82 18 138/71 (93) 95 01/11/19 15:30 98.5 71 17 103/64 (77) 95 01/11/19 11:30 98.1 63 18 124/72 (89) 97 01/11/19 11:22 124/72 01/11/19 11:00 Room Air 01/11/19 09:23 63 106/59 (75) 01/11/19 09:00 Room Air 01/11/19 08:00 97.8 61 16 104/57 (73) 95 Intake and Output 01/11/19 01/12/19 18:59 06:59 Intake Total 1698 ml 1435 ml Balance 1698 ml 1435 ml Intake Oral 948 ml 500 ml IV Total 750 ml 935 ml # Voids 3 2 # Bowel Movements 1 1 Height (Feet): 5 Height (Inches): 0.00 Weight (Pounds): 137 Objective Current Medications Medications (Trade) Dose Ordered Sig/Lebron Route PRN Reason Start Time Stop Time Status Last Admin Dose Admin Acetaminophen (Tylenol) 650 mg Q4H PRN ORAL Prn Headache/Temp > 101 01/04/19 22:00 02/03/19 21:59 01/11/19 04:55 Calcium Carbonate (OsCal D) 1 tab BID ORAL 01/05/19 09:00 02/04/19 08:59 01/10/19 17:13 Captopril (Capoten) 25 mg Q24HRS ORAL 01/05/19 09:00 02/04/19 08:59 01/10/19 09:57 Ceftriaxone Sodium 1 gm/ Dextrose 55 ml @ 110 mls/hr DAILY IVPB 01/05/19 12:00 01/12/19 11:59 01/10/19 09:56 Dextrose (Dextrose 50%) 25 ml Q30M PRN IV Hypoglycemia 01/07/19 18:00 02/06/19 17:59 Dextrose (Dextrose 50%) 50 ml Q30M PRN IV Hypoglycemia 01/07/19 18:00 02/06/19 17:59 Ferrous Sulfate (Feosol) 325 mg TWICE A DAY ORAL 01/05/19 09:00 02/04/19 08:59 01/10/19 17:13 Gadobutrol (Gadavist) 7.5 mmol NOW PRN IV Radiology Procedure 01/10/19 04:00 01/14/19 03:50 Heparin Sodium (Porcine) (Heparin 5000 units/ml) 5,000 units EVERY 12 HOURS SUBQ 01/07/19 16:45 02/06/19 16:44 01/10/19 21:31 Insulin Aspart (NovoLOG) BEFORE MEALS AND HS SUBQ 01/05/19 06:30 02/04/19 06:29 01/11/19 06:32 Insulin Aspart (NovoLOG) 12 units NOVOTIAC SUBQ 01/08/19 16:50 02/06/19 18:29 01/11/19 06:31 Insulin Detemir (Levemir) 36 units BEDTIME SUBQ 01/08/19 21:00 02/06/19 20:59 01/10/19 22:06 Iopamidol (Isovue-300 100ml) 100 ml NOW PRN INJ Radiology Procedure 01/04/19 17:15 Morphine Sulfate (Morphine Sulfate) 3 mg Q3H PRN IVP Moderate Pain (Pain Scale 4-6) 01/04/19 21:45 01/11/19 21:44 01/10/19 21:04 Morphine Sulfate (Morphine Sulfate) 5 mg Q3H PRN IVP Severe Pain (Pain Scale 7-10) 01/04/19 21:45 01/11/19 21:44 01/09/19 20:53 Ondansetron HCl (Zofran) 4 mg Q4H PRN IVP Nausea & Vomiting 01/04/19 21:45 02/03/19 21:44 01/06/19 21:54 Patient Own Medication (Patient's Own Med) 1 ea DAILY@1800 ORAL 01/07/19 18:00 02/04/19 20:59 01/10/19 17:13 Pravastatin Sodium (Pravachol) 40 mg BEDTIME ORAL 01/04/19 21:45 02/03/19 21:44 01/10/19 21:06 Sodium Chloride 1,000 ml @ 75 mls/hr [id number] IV 01/04/19 21:45 02/03/19 21:44 01/11/19 05:01 Vancomycin HCl (Vanco rx to dose) 1 ea DAILY PRN MISC Per rx protocol 01/09/19 12:00 02/08/19 11:59 Vancomycin HCl 500 mg/Dextrose 110 ml @ 110 mls/hr Q12HR@0200,1400 IVPB 01/09/19 14:00 01/14/19 13:59 01/11/19 01:50 Vitamin B Complex (Vitamin B Complex) 1 tab DAILY ORAL 01/05/19 09:00 02/04/19 08:59 01/10/19 09:57 Jaxson Payne MD Jan 12, 2019 07:37
[2019-01-12 08:00] VITALS: BP 127/65
[2019-01-12] MEDS: cefTRIAXone 1 GM in D5W 55 ML IVPB SCH (08:12)
[2019-01-12 08:22] LABS: CREATININE 1.2 MG/DL (0.55-1.30)
[2019-01-12] MEDS: Vitamin B Complex Tab ORAL SCH (08:29)
[2019-01-12] MEDS: Calcium Carbonate 500mg w/Vit D 200iu tab ORAL SCH ×2 (08:30→17:29)
[2019-01-12] MEDS: Captopril 25mg tab ORAL SCH (08:30)
[2019-01-12] MEDS: Heparin 5000 units/ml inj SUBQ SCH ×2 (08:31→21:22)
[2019-01-12] MEDS ORDERED: D5NS 1000ml IV ONE (08:39)
[2019-01-12] MEDS ORDERED: celeBREX 200mg Cap **SURGERY PATIENTS ONLY ORAL SCH (09:00)
--- NOTE | 2019-01-12 10:36 | Infectious Diseases Prog Note ---
Assessment/Plan Assessment/Plan IMPRESSION: HIV on Triumeq mild pyuria, may have UTI, mild pancreatitis, diabetes with hyperglycemia. Electronic imbalance was corrected. . Acute renal failure that is improving. R Ankle arthritis history of bone tuberculosis RECOMMENDATION: Continue ceftriaxone & IV Vancomycin Continue ART Will try to obtain more information for TB treatment in past Will f/u MRI Subjective ROS Limited/Unobtainable: No Constitutional: Reports: no symptoms Respiratory: Reports: no symptoms Cardiovascular: Reports: no symptoms Gastrointestinal/Abdominal: Reports: no symptoms Musculoskeletal: Reports: pain, other - in right ankle Allergies: Coded Allergies: No Known Allergies (Unverified , 01/04/19) Objective Vital Signs Last 24 Hour Vital Signs Date Time Temp Pulse Resp B/P (MAP) Pulse Ox O2 Delivery O2 Flow Rate FiO2 01/12/19 09:00 Room Air 01/12/19 08:30 127/65 01/12/19 08:00 98.4 77 18 127/65 (85) 96 01/12/19 04:00 99.0 70 18 110/59 (76) 98 01/12/19 00:00 98.5 67 18 124/65 (84) 99 01/11/19 21:00 Room Air 01/11/19 20:00 99.3 82 18 138/71 (93) 95 01/11/19 15:30 98.5 71 17 103/64 (77) 95 01/11/19 11:30 98.1 63 18 124/72 (89) 97 01/11/19 11:22 124/72 01/11/19 11:00 Room Air Height (Feet): 5 Height (Inches): 0.00 Weight (Pounds): 137 General Appearance: no acute distress HEENT: mucous membranes moist Respiratory/Chest: lungs clear Cardiovascular: normal rate Abdomen: soft, non tender Extremities: other - right akle edema, tenderness over lateral malleolus Skin: no rash Neurologic/Psychiatric: alert, oriented x 3, responsive Laboratory Tests Test 01/12/19 07:28 Creatinine 1.2 MG/DL (0.55-1.30) Estimat Glomerular Filtration Rate mL/min (>60) Current Medications Medications (Trade) Dose Ordered Sig/Lebron Route PRN Reason Start Time Stop Time Status Last Admin Dose Admin Acetaminophen (Tylenol) 650 mg Q4H PRN ORAL Prn Headache/Temp > 101 01/04/19 22:00 02/03/19 21:59 01/11/19 21:07 Calcium Carbonate (OsCal D) 1 tab BID ORAL 01/05/19 09:00 02/04/19 08:59 01/12/19 08:30 Captopril (Capoten) 25 mg Q24HRS ORAL 01/05/19 09:00 02/04/19 08:59 01/12/19 08:30 Ceftriaxone Sodium 1 gm/ Dextrose 55 ml @ 110 mls/hr DAILY IVPB 01/05/19 12:00 01/12/19 11:59 01/12/19 08:12 Dextrose (Dextrose 50%) 25 ml Q30M PRN IV Hypoglycemia 01/11/19 08:00 02/10/19 07:59 Dextrose (Dextrose 50%) 50 ml Q30M PRN IV Hypoglycemia 01/11/19 08:00 02/10/19 07:59 Ferrous Sulfate (Feosol) 325 mg TWICE A DAY ORAL 01/05/19 09:00 02/04/19 08:59 01/12/19 08:29 Gadobutrol (Gadavist) 7.5 mmol NOW PRN IV Radiology Procedure 01/10/19 04:00 01/14/19 03:50 Heparin Sodium (Porcine) (Heparin 5000 units/ml) 5,000 units EVERY 12 HOURS SUBQ 01/07/19 16:45 02/06/19 16:44 01/12/19 08:31 Insulin Aspart (NovoLOG) BEFORE MEALS AND HS SUBQ 01/05/19 06:30 02/04/19 06:29 01/11/19 20:52 Insulin Aspart (NovoLOG) 20 units NOVOTIAC SUBQ 01/11/19 11:50 02/06/19 18:29 01/12/19 06:44 Insulin Detemir (Levemir) 40 units BEDTIME SUBQ 01/11/19 21:00 02/06/19 20:59 01/11/19 20:51 Iopamidol (Isovue-300 100ml) 100 ml NOW PRN INJ Radiology Procedure 01/04/19 17:15 Meloxicam (Mobic) 7.5 mg DAILY ORAL 01/12/19 09:00 02/11/19 08:59 01/12/19 08:29 Morphine Sulfate (Morphine Sulfate) 2 mg Q3HR PRN IVP Moderate Pain (Pain Scale 4-6) 01/12/19 06:45 01/19/19 06:44 Morphine Sulfate (Morphine Sulfate) 4 mg Q3HR PRN IVP Severe Pain (Pain Scale 7-10) 01/12/19 06:45 01/19/19 06:44 01/12/19 06:51 Ondansetron HCl (Zofran) 4 mg Q4H PRN IVP Nausea & Vomiting 01/04/19 21:45 02/03/19 21:44 01/06/19 21:54 Patient Own Medication (Patient's Own Med) 1 ea DAILY@1800 ORAL 01/07/19 18:00 02/04/19 20:59 01/11/19 18:54 Polyethylene Glycol (Miralax) 17 gm BEDTIME ORAL 01/11/19 21:00 02/10/19 20:59 01/11/19 20:45 Pravastatin Sodium (Pravachol) 40 mg BEDTIME ORAL 01/04/19 21:45 02/03/19 21:44 01/11/19 20:45 Sodium Chloride 1,000 ml @ 75 mls/hr [id number] IV 01/04/19 21:45 02/03/19 21:44 01/12/19 08:11 Vancomycin HCl (Vanco rx to dose) 1 ea DAILY PRN MISC Per rx protocol 01/09/19 12:00 02/08/19 11:59 Vancomycin HCl 500 mg/Dextrose 110 ml @ 110 mls/hr Q12HR@0200,1400 IVPB 01/09/19 14:00 01/14/19 13:59 01/12/19 02:01 Vitamin B Complex (Vitamin B Complex) 1 tab DAILY ORAL 01/05/19 09:00 02/04/19 08:59 01/12/19 08:29 Quinton Kaminski MD Jan 12, 2019 10:36
[2019-01-12 12:00] VITALS: BP 130/63
--- NOTE | 2019-01-12 13:19 | General Progress Note ---
Assessment/Plan Problem List: (1) ARF (acute renal failure) ICD Codes: N17.9 - Acute kidney failure, unspecified SNOMED: 19408202 (2) Hyponatremia ICD Codes: E87.1 - Hypo-osmolality and hyponatremia SNOMED: 48521362 (3) Hyperglycemia ICD Codes: R73.9 - Hyperglycemia, unspecified SNOMED: 89593027 (4) UTI (urinary tract infection) ICD Codes: N39.0 - Urinary tract infection, site not specified SNOMED: 71462567 (5) Right ankle effusion ICD Codes: M25.471 - Effusion, right ankle SNOMED: 416497674 Assessment/Plan: Continue antibiotics Await MRI results Discussed with family and RN Adjustment for diabetes medications by Dr. Payne pt was started on NSAIDs Subjective Allergies: Coded Allergies: No Known Allergies (Unverified , 01/04/19) Subjective Patient has still swelling and redness over the lateral malleolus of right ankle that is unchanged severe L groin pain yesterday Objective Last 24 Hour Vital Signs Date Time Temp Pulse Resp B/P (MAP) Pulse Ox O2 Delivery O2 Flow Rate FiO2 01/12/19 12:00 98.7 62 17 130/63 (85) 97 01/12/19 09:00 Room Air 01/12/19 08:30 127/65 01/12/19 08:00 98.4 77 18 127/65 (85) 96 01/12/19 04:00 99.0 70 18 110/59 (76) 98 01/12/19 00:00 98.5 67 18 124/65 (84) 99 01/11/19 21:00 Room Air 01/11/19 20:00 99.3 82 18 138/71 (93) 95 01/11/19 15:30 98.5 71 17 103/64 (77) 95 Intake and Output 01/11/19 01/12/19 19:00 07:00 Intake Total 1773 ml 1435 ml Balance 1773 ml 1435 ml Intake Oral 948 ml 500 ml IV Total 825 ml 935 ml # Voids 3 2 # Bowel Movements 1 1 Laboratory Tests 01/12/19 07:28: Creatinine 1.2, Estimat Glomerular Filtration Rate Height (Feet): 5 Height (Inches): 0.00 Weight (Pounds): 137 Cardiovascular: normal rate Respiratory/Chest: lungs clear Extremities: other - L groin tender Walker Kaminski MD Jan 12, 2019 13:19
[2019-01-12 16:00] VITALS: BP 126/68
[2019-01-12] MEDS: TRIUMEQ ORAL SCH (17:29)
[2019-01-12 20:00] VITALS: BP 123/59
[2019-01-12] MEDS: Levemir Flexpen SUBQ SCH (21:31)
[2019-01-12] MEDS: Miralax 17gm pkt ORAL SCH (21:33)
[2019-01-13] VITALS: BP 111/59
[2019-01-13] MEDS: Vancomycin 500mg/D5W 110ml IVPB SCH ×4 (02:42→14:27)
[2019-01-13 04:00] VITALS: BP 138/66
[2019-01-13] MEDS: NovoLOG Insulin Flexpen SUBQ SCH ×7 (06:11→20:28)
--- NOTE | 2019-01-13 06:38 | General Progress Note ---
Assessment/Plan Problem List: (1) Diabetes mellitus out of control ICD Codes: E11.65 - Type 2 diabetes mellitus with hyperglycemia SNOMED: 11021841, 995298610 (2) Hyperglycemia ICD Codes: R73.9 - Hyperglycemia, unspecified SNOMED: 22710445 (3) Pancreatitis ICD Codes: K85.90 - Acute pancreatitis without necrosis or infection, unspecified SNOMED: 18911383 (4) Renal insufficiency ICD Codes: N28.9 - Disorder of kidney and ureter, unspecified SNOMED: 306758725, 615838193 Assessment/Plan: continue Levemir 40 units qhs continue Novolog 20 units ac tid continue NISS ac / hs she will certainly stay on insulin regimen after DC patient family need to be instructed on how to use insulin "pen" patient is followed by her own endo as OP - I asked Jennifer to make a close follow up appointment Subjective Allergies: Coded Allergies: No Known Allergies (Unverified , 01/04/19) All Systems: reviewed and negative except above Subjective events noted Item Value Date Time Bedside Blood Glucose 144 mg/dl H 01/13/19 0612 Bedside Blood Glucose 299 mg/dl H 01/12/19 2131 Bedside Blood Glucose 248 mg/dl H 01/12/19 1725 Bedside Blood Glucose 138 mg/dl H 01/12/19 1237 Bedside Blood Glucose 105 mg/dl 01/12/19 0644 Objective Last 24 Hour Vital Signs Date Time Temp Pulse Resp B/P (MAP) Pulse Ox O2 Delivery O2 Flow Rate FiO2 01/13/19 04:00 99.5 68 18 138/66 (90) 94 01/13/19 00:00 99.2 66 18 111/59 (76) 96 01/12/19 21:00 Room Air 01/12/19 20:00 98.6 66 18 123/59 (80) 100 01/12/19 17:35 Room Air 01/12/19 16:00 98.6 62 18 126/68 (87) 97 01/12/19 12:00 98.7 62 17 130/63 (85) 97 01/12/19 09:00 Room Air 01/12/19 08:30 127/65 01/12/19 08:00 98.4 77 18 127/65 (85) 96 Intake and Output 4/28/19 4/29/19 18:59 06:59 Intake Total 1950 ml 1039.0 ml Balance 1950 ml 1039.0 ml Intake Oral 1200 ml IV Total 750 ml 785.0 ml Other 254 ml # Voids 3 2 # Bowel Movements 2 Laboratory Tests 01/12/19 07:28: Creatinine 1.2, Estimat Glomerular Filtration Rate Height (Feet): 5 Height (Inches): 0.00 Weight (Pounds): 137 General Appearance: no apparent distress Neck: normal alignment Cardiovascular: normal rate Respiratory/Chest: lungs clear Abdomen: normal bowel sounds Pelvis: normal external exam Edema: no edema noted Arm (L), no edema noted Arm (R), no edema noted Leg (L), no edema noted Leg (R), no edema noted Pedal (L), no edema noted Pedal (R), no edema noted Generalized Objective Current Medications Medications (Trade) Dose Ordered Sig/Lebron Route PRN Reason Start Time Stop Time Status Last Admin Dose Admin Acetaminophen (Tylenol) 650 mg Q4H PRN ORAL Prn Headache/Temp > 101 01/04/19 22:00 02/03/19 21:59 01/12/19 17:42 Calcium Carbonate (OsCal D) 1 tab BID ORAL 01/05/19 09:00 02/04/19 08:59 01/12/19 17:29 Captopril (Capoten) 25 mg Q24HRS ORAL 01/05/19 09:00 02/04/19 08:59 01/12/19 08:30 Dextrose (Dextrose 50%) 25 ml Q30M PRN IV Hypoglycemia 01/11/19 08:00 02/10/19 07:59 Dextrose (Dextrose 50%) 50 ml Q30M PRN IV Hypoglycemia 01/11/19 08:00 02/10/19 07:59 Ferrous Sulfate (Feosol) 325 mg TWICE A DAY ORAL 01/05/19 09:00 02/04/19 08:59 01/12/19 17:29 Gadobutrol (Gadavist) 7.5 mmol NOW PRN IV Radiology Procedure 01/10/19 04:00 01/14/19 03:50 Heparin Sodium (Porcine) (Heparin 5000 units/ml) 5,000 units EVERY 12 HOURS SUBQ 01/07/19 16:45 02/06/19 16:44 01/12/19 21:22 Insulin Aspart (NovoLOG) BEFORE MEALS AND HS SUBQ 01/05/19 06:30 02/04/19 06:29 01/13/19 06:12 Insulin Aspart (NovoLOG) 20 units NOVOTIAC SUBQ 01/11/19 11:50 02/06/19 18:29 01/13/19 06:11 Insulin Detemir (Levemir) 40 units BEDTIME SUBQ 01/11/19 21:00 02/06/19 20:59 01/12/19 21:31 Iopamidol (Isovue-300 100ml) 100 ml NOW PRN INJ Radiology Procedure 01/04/19 17:15 Meloxicam (Mobic) 7.5 mg DAILY ORAL 01/12/19 09:00 02/11/19 08:59 01/12/19 08:29 Morphine Sulfate (Morphine Sulfate) 2 mg Q3HR PRN IVP Moderate Pain (Pain Scale 4-6) 01/12/19 06:45 01/19/19 06:44 Morphine Sulfate (Morphine Sulfate) 4 mg Q3HR PRN IVP Severe Pain (Pain Scale 7-10) 01/12/19 06:45 01/19/19 06:44 01/12/19 12:13 Ondansetron HCl (Zofran) 4 mg Q4H PRN IVP Nausea & Vomiting 01/04/19 21:45 02/03/19 21:44 01/12/19 17:41 Patient Own Medication (Patient's Own Med) 1 ea DAILY@1800 ORAL 01/07/19 18:00 02/04/19 20:59 01/12/19 17:29 Polyethylene Glycol (Miralax) 17 gm BEDTIME ORAL 01/11/19 21:00 02/10/19 20:59 01/12/19 21:33 Pravastatin Sodium (Pravachol) 40 mg BEDTIME ORAL 01/04/19 21:45 02/03/19 21:44 01/12/19 21:23 Sodium Chloride 1,000 ml @ 75 mls/hr [id number] IV 01/04/19 21:45 02/03/19 21:44 01/13/19 00:19 Vancomycin HCl (Vanco rx to dose) 1 ea DAILY PRN MISC Per rx protocol 01/09/19 12:00 02/08/19 11:59 Vancomycin HCl 500 mg/Dextrose 110 ml @ 110 mls/hr Q12HR@0200,1400 IVPB 01/09/19 14:00 01/14/19 13:59 01/13/19 02:42 Vitamin B Complex (Vitamin B Complex) 1 tab DAILY ORAL 01/05/19 09:00 02/04/19 08:59 01/12/19 08:29 Jaxson Payne MD Jan 13, 2019 06:38
[2019-01-13 08:00] VITALS: BP 121/59
--- NOTE | 2019-01-13 08:15 | Progress Note ---
DATE: 01/11/2019 SUBJECTIVE: The patient is intermittently febrile without tachycardia and hemodynamically stable. PHYSICAL EXAMINATION: VITAL SIGNS: Blood pressure 138/71, her pulse 82, respirations 18, and temperature 99.3. HEENT: Eyes were normal. ENT, mucous membranes were moist and intact. NECK: Supple with no JVD without lymph nodes. LUNGS: Clear. HEART: Normal sounds with regular beat. ABDOMEN: Soft and nontender with normal bowel sounds. EXTREMITIES: Warm without cyanosis, clubbing, or edema. LABORATORY DATA: No imaging study in particular MRI and bone scan unavailable. In addition, the patient's ability to bear weight 01:55 substantially declined over the last several days. According to her family, she is unable to bear weight more than a short period of time. She 02:07 to walk a few steps between the bed to the chair. PLAN: We are waiting for the completion of the 02:14 to decide whether the patient needs synovial biopsy. Repeat laboratory tests will be done next week. Patrizia Larson M.D. DR: WENDI JOB#: [id number] CC:
--- NOTE | 2019-01-13 08:55 | Diagnostic Imaging Report ---
Indication: Right ankle pain and swelling Technique: Sagittal, axial, and coronal T1 FSE and FSE STIR images of the ankle. Pre and postcontrast sagittal T1 fat saturated images also obtained Comparison: none Findings: No definite osseous marrow signal abnormality demonstrated. There is marked edema of the subcutaneous fat medially and laterally. No focal fluid collections to suggest abscess. There is nonspecific fluid within several of the major tendon sheaths. No unusual contrast enhancement Impression: Edema of the medial and lateral subcutaneous fat. This is nonspecific, could indicate cellulitis or edema of hemodynamic origin No evidence of osteomyelitis. No evidence of soft tissue abscess. Fluid within several major tendon sheaths. This is a nonspecific finding, could indicate inflammation
[2019-01-13] MEDS: Captopril 25mg tab ORAL SCH (09:09)
[2019-01-13] MEDS: Calcium Carbonate 500mg w/Vit D 200iu tab ORAL SCH ×2 (09:10→18:02)
[2019-01-13] MEDS: Vitamin B Complex Tab ORAL SCH (09:10)
[2019-01-13] MEDS: Heparin 5000 units/ml inj SUBQ SCH ×2 (09:11→20:16)
[2019-01-13 12:00] VITALS: BP 103/57
--- NOTE | 2019-01-13 12:57 | Infectious Diseases Prog Note ---
Assessment/Plan Assessment/Plan IMPRESSION: HIV on Triumeq mild pyuria, may have UTI, mild pancreatitis, diabetes with hyperglycemia. Electronic imbalance was corrected. . Acute renal failure that is improving. R Ankle edema, MRI negative for osteomyelitis history of bone tuberculosis RECOMMENDATION: Continue IV Vancomycin Continue ART Will try to obtain more information for TB treatment in past Subjective ROS Limited/Unobtainable: No Constitutional: Reports: no symptoms, other - fees better Respiratory: Reports: no symptoms Cardiovascular: Reports: no symptoms Gastrointestinal/Abdominal: Reports: no symptoms Musculoskeletal: Reports: pain, other - only at walking in right ankle Allergies: Coded Allergies: No Known Allergies (Unverified , 01/04/19) Objective Vital Signs Last 24 Hour Vital Signs Date Time Temp Pulse Resp B/P (MAP) Pulse Ox O2 Delivery O2 Flow Rate FiO2 01/13/19 09:09 121/59 01/13/19 09:00 Room Air 01/13/19 08:00 99.0 72 16 121/59 (79) 96 01/13/19 04:00 99.5 68 18 138/66 (90) 94 01/13/19 00:00 99.2 66 18 111/59 (76) 96 01/12/19 21:00 Room Air 01/12/19 20:00 98.6 66 18 123/59 (80) 100 01/12/19 17:35 Room Air 01/12/19 16:00 98.6 62 18 126/68 (87) 97 Height (Feet): 5 Height (Inches): 0.00 Weight (Pounds): 137 General Appearance: no acute distress HEENT: mucous membranes moist Respiratory/Chest: lungs clear Cardiovascular: normal rate Abdomen: soft, non tender Extremities: other - R ankle edema Current Medications Medications (Trade) Dose Ordered Sig/Lebron Route PRN Reason Start Time Stop Time Status Last Admin Dose Admin Acetaminophen (Tylenol) 650 mg Q4H PRN ORAL Prn Headache/Temp > 101 01/04/19 22:00 02/03/19 21:59 01/12/19 17:42 Calcium Carbonate (OsCal D) 1 tab BID ORAL 01/05/19 09:00 02/04/19 08:59 01/13/19 09:10 Captopril (Capoten) 25 mg Q24HRS ORAL 01/05/19 09:00 02/04/19 08:59 01/13/19 09:09 Dextrose (Dextrose 50%) 25 ml Q30M PRN IV Hypoglycemia 01/11/19 08:00 02/10/19 07:59 Dextrose (Dextrose 50%) 50 ml Q30M PRN IV Hypoglycemia 01/11/19 08:00 02/10/19 07:59 Ferrous Sulfate (Feosol) 325 mg TWICE A DAY ORAL 01/05/19 09:00 02/04/19 08:59 01/13/19 09:10 Gadobutrol (Gadavist) 7.5 mmol NOW PRN IV Radiology Procedure 01/10/19 04:00 01/14/19 03:50 Heparin Sodium (Porcine) (Heparin 5000 units/ml) 5,000 units EVERY 12 HOURS SUBQ 01/07/19 16:45 02/06/19 16:44 01/13/19 09:11 Insulin Aspart (NovoLOG) BEFORE MEALS AND HS SUBQ 01/05/19 06:30 02/04/19 06:29 01/13/19 11:33 Insulin Aspart (NovoLOG) 20 units NOVOTIAC SUBQ 01/11/19 11:50 02/06/19 18:29 01/13/19 12:24 Insulin Detemir (Levemir) 40 units BEDTIME SUBQ 01/11/19 21:00 02/06/19 20:59 01/12/19 21:31 Iopamidol (Isovue-300 100ml) 100 ml NOW PRN INJ Radiology Procedure 01/04/19 17:15 Meloxicam (Mobic) 7.5 mg DAILY ORAL 01/12/19 09:00 02/11/19 08:59 01/13/19 09:09 Morphine Sulfate (Morphine Sulfate) 2 mg Q3HR PRN IVP Moderate Pain (Pain Scale 4-6) 01/12/19 06:45 01/19/19 06:44 Morphine Sulfate (Morphine Sulfate) 4 mg Q3HR PRN IVP Severe Pain (Pain Scale 7-10) 01/12/19 06:45 01/19/19 06:44 01/12/19 12:13 Ondansetron HCl (Zofran) 4 mg Q4H PRN IVP Nausea & Vomiting 01/04/19 21:45 02/03/19 21:44 01/12/19 17:41 Patient Own Medication (Patient's Own Med) 1 ea DAILY@1800 ORAL 01/07/19 18:00 02/04/19 20:59 01/12/19 17:29 Polyethylene Glycol (Miralax) 17 gm BEDTIME ORAL 01/11/19 21:00 02/10/19 20:59 01/12/19 21:33 Pravastatin Sodium (Pravachol) 40 mg BEDTIME ORAL 01/04/19 21:45 02/03/19 21:44 01/12/19 21:23 Sodium Chloride 1,000 ml @ 75 mls/hr [id number] IV 01/04/19 21:45 02/03/19 21:44 01/13/19 00:19 Vancomycin HCl (Vanco rx to dose) 1 ea DAILY PRN MISC Per rx protocol 01/09/19 12:00 02/08/19 11:59 Vancomycin HCl 500 mg/Dextrose 110 ml @ 110 mls/hr Q12HR@0200,1400 IVPB 01/09/19 14:00 01/18/19 13:59 01/13/19 02:42 Vitamin B Complex (Vitamin B Complex) 1 tab DAILY ORAL 01/05/19 09:00 02/04/19 08:59 01/13/19 09:10 Quinton Kaminski MD Jan 13, 2019 12:57
--- NOTE | 2019-01-13 13:27 | General Progress Note ---
Assessment/Plan Problem List: (1) ARF (acute renal failure) ICD Codes: N17.9 - Acute kidney failure, unspecified SNOMED: 34491103 (2) Hyponatremia ICD Codes: E87.1 - Hypo-osmolality and hyponatremia SNOMED: 68231399 (3) Hyperglycemia ICD Codes: R73.9 - Hyperglycemia, unspecified SNOMED: 59667589 (4) UTI (urinary tract infection) ICD Codes: N39.0 - Urinary tract infection, site not specified SNOMED: 05794357 (5) Right ankle effusion ICD Codes: M25.471 - Effusion, right ankle SNOMED: 972622625 Status Narrative MRI of right ankle was negative for osteomyelitis Assessment/Plan: Continue antibiotics Discussed with family and RN Adjustment for diabetes medications by Dr. Payne Continue NSAIDs Subjective Allergies: Coded Allergies: No Known Allergies (Unverified , 01/04/19) Subjective Patient feels better today Objective Last 24 Hour Vital Signs Date Time Temp Pulse Resp B/P (MAP) Pulse Ox O2 Delivery O2 Flow Rate FiO2 01/13/19 09:09 121/59 01/13/19 09:00 Room Air 01/13/19 08:00 99.0 72 16 121/59 (79) 96 01/13/19 04:00 99.5 68 18 138/66 (90) 94 01/13/19 00:00 99.2 66 18 111/59 (76) 96 01/12/19 21:00 Room Air 01/12/19 20:00 98.6 66 18 123/59 (80) 100 01/12/19 17:35 Room Air 01/12/19 16:00 98.6 62 18 126/68 (87) 97 Intake and Output 01/12/19 01/13/19 19:00 07:00 Intake Total 1912.5 ml 1001.5 ml Balance 1912.5 ml 1001.5 ml Intake Oral 1200 ml IV Total 712.5 ml 747.5 ml Other 254 ml # Voids 3 2 # Bowel Movements 2 Height (Feet): 5 Height (Inches): 0.00 Weight (Pounds): 137 Cardiovascular: normal rate Respiratory/Chest: lungs clear Edema: other - Right ankle still swollen and red Walker Kaminski MD Jan 13, 2019 13:27
[2019-01-13 16:00] VITALS: BP 122/64
[2019-01-13] MEDS: TRIUMEQ ORAL SCH (18:02)
[2019-01-13 20:00] VITALS: BP 129/60
[2019-01-13] MEDS: Miralax 17gm pkt ORAL SCH (20:15)
[2019-01-13] MEDS: Levemir Flexpen SUBQ SCH (20:28)
[2019-01-14] VITALS: BP 133/58
[2019-01-14] MEDS: Vancomycin 500mg/D5W 110ml IVPB SCH ×4 (01:18→14:33)
[2019-01-14 04:00] VITALS: BP 137/66
[2019-01-14] MEDS: NovoLOG Insulin Flexpen SUBQ SCH ×8 (06:19→20:41)
--- NOTE | 2019-01-14 06:21 | General Progress Note ---
Assessment/Plan Problem List: (1) Diabetes mellitus out of control ICD Codes: E11.65 - Type 2 diabetes mellitus with hyperglycemia SNOMED: 88515653, 485981195 (2) Hyperglycemia ICD Codes: R73.9 - Hyperglycemia, unspecified SNOMED: 61219114 (3) Pancreatitis ICD Codes: K85.90 - Acute pancreatitis without necrosis or infection, unspecified SNOMED: 21553994 (4) Renal insufficiency ICD Codes: N28.9 - Disorder of kidney and ureter, unspecified SNOMED: 669043079, 892782873 Assessment/Plan: change Levemir 40 units qhs to 30 units qam reduce Novolog 20 to 10 units ac tid continue NISS ac / hs she will certainly stay on insulin regimen after DC patient family need to be instructed on how to use insulin "pen" patient is followed by her own endo as OP - I asked Jennifer to make a close follow up appointment Subjective Allergies: Coded Allergies: No Known Allergies (Unverified , 01/04/19) All Systems: reviewed and negative except above Subjective events noted Levemir 40 units was held last night Item Value Date Time Bedside Blood Glucose 253 mg/dl H 01/14/19 0603 Bedside Blood Glucose 65 mg/dl L 01/13/19 2100 Bedside Blood Glucose 134 mg/dl H 01/13/19 1719 Bedside Blood Glucose 124 mg/dl H 01/13/19 1224 Objective Last 24 Hour Vital Signs Date Time Temp Pulse Resp B/P (MAP) Pulse Ox O2 Delivery O2 Flow Rate FiO2 01/14/19 04:00 99.3 76 18 137/66 (89) 96 01/14/19 00:00 98.6 77 18 133/58 (83) 92 01/13/19 21:00 Room Air 01/13/19 20:00 98.7 74 17 129/60 (83) 93 01/13/19 16:00 99.3 72 20 122/64 (83) 96 01/13/19 12:00 99.5 72 18 103/57 (72) 97 01/13/19 09:09 121/59 01/13/19 09:00 Room Air 01/13/19 08:00 99.0 72 16 121/59 (79) 96 Intake and Output 01/13/19 01/14/19 19:00 07:00 Intake Total 1275 ml 785 ml Balance 1275 ml 785 ml Intake Oral 750 ml IV Total 525 ml 785 ml # Voids 2 # Bowel Movements 1 Height (Feet): 5 Height (Inches): 0.00 Weight (Pounds): 137 General Appearance: no apparent distress Neck: normal alignment Cardiovascular: normal rate Respiratory/Chest: lungs clear Abdomen: normal bowel sounds Pelvis: normal external exam Objective Current Medications Medications (Trade) Dose Ordered Sig/Lebron Route PRN Reason Start Time Stop Time Status Last Admin Dose Admin Acetaminophen (Tylenol) 650 mg Q4H PRN ORAL Prn Headache/Temp > 101 01/04/19 22:00 02/03/19 21:59 01/12/19 17:42 Calcium Carbonate (OsCal D) 1 tab BID ORAL 01/05/19 09:00 02/04/19 08:59 01/13/19 18:02 Captopril (Capoten) 25 mg Q24HRS ORAL 01/05/19 09:00 02/04/19 08:59 01/13/19 09:09 Dextrose (Dextrose 50%) 25 ml Q30M PRN IV Hypoglycemia 01/11/19 08:00 02/10/19 07:59 Dextrose (Dextrose 50%) 50 ml Q30M PRN IV Hypoglycemia 01/11/19 08:00 02/10/19 07:59 Ferrous Sulfate (Feosol) 325 mg TWICE A DAY ORAL 01/05/19 09:00 02/04/19 08:59 01/13/19 18:02 Heparin Sodium (Porcine) (Heparin 5000 units/ml) 5,000 units EVERY 12 HOURS SUBQ 01/07/19 16:45 02/06/19 16:44 01/13/19 20:16 Insulin Aspart (NovoLOG) BEFORE MEALS AND HS SUBQ 01/05/19 06:30 02/04/19 06:29 01/13/19 16:49 Insulin Aspart (NovoLOG) 20 units NOVOTIAC SUBQ 01/11/19 11:50 02/06/19 18:29 01/13/19 17:19 Insulin Detemir (Levemir) 40 units BEDTIME SUBQ 01/11/19 21:00 02/06/19 20:59 01/12/19 21:31 Iopamidol (Isovue-300 100ml) 100 ml NOW PRN INJ Radiology Procedure 01/04/19 17:15 Meloxicam (Mobic) 7.5 mg DAILY ORAL 01/12/19 09:00 02/11/19 08:59 01/13/19 09:09 Morphine Sulfate (Morphine Sulfate) 2 mg Q3HR PRN IVP Moderate Pain (Pain Scale 4-6) 01/12/19 06:45 01/19/19 06:44 Morphine Sulfate (Morphine Sulfate) 4 mg Q3HR PRN IVP Severe Pain (Pain Scale 7-10) 01/12/19 06:45 01/19/19 06:44 01/12/19 12:13 Ondansetron HCl (Zofran) 4 mg Q4H PRN IVP Nausea & Vomiting 01/04/19 21:45 02/03/19 21:44 01/12/19 17:41 Patient Own Medication (Patient's Own Med) 1 ea DAILY@1800 ORAL 01/07/19 18:00 02/04/19 20:59 01/13/19 18:02 Polyethylene Glycol (Miralax) 17 gm BEDTIME ORAL 01/11/19 21:00 02/10/19 20:59 01/13/19 20:15 Pravastatin Sodium (Pravachol) 40 mg BEDTIME ORAL 01/04/19 21:45 02/03/19 21:44 01/13/19 20:15 Sodium Chloride 1,000 ml @ 75 mls/hr [id number] IV 01/04/19 21:45 02/03/19 21:44 01/13/19 19:05 Vancomycin HCl (Vanco rx to dose) 1 ea DAILY PRN MISC Per rx protocol 01/09/19 12:00 02/08/19 11:59 Vancomycin HCl 500 mg/Dextrose 110 ml @ 110 mls/hr Q12HR@0200,1400 IVPB 01/09/19 14:00 01/18/19 13:59 01/14/19 01:18 Vitamin B Complex (Vitamin B Complex) 1 tab DAILY ORAL 01/05/19 09:00 02/04/19 08:59 01/13/19 09:10 Jaxson Payne MD Jan 14, 2019 06:21
[2019-01-14 08:00] VITALS: BP 122/62
[2019-01-14] MEDS: Captopril 25mg tab ORAL SCH (08:26)
[2019-01-14] MEDS: Vitamin B Complex Tab ORAL SCH (08:26)
[2019-01-14] MEDS: Calcium Carbonate 500mg w/Vit D 200iu tab ORAL SCH ×2 (08:26→17:06)
[2019-01-14] MEDS: Heparin 5000 units/ml inj SUBQ SCH ×2 (08:32→20:39)
[2019-01-14] MEDS: Levemir Flexpen SUBQ SCH (08:36)
--- NOTE | 2019-01-14 10:45 | Infectious Diseases Prog Note ---
Assessment/Plan Assessment/Plan IMPRESSION: HIV on Triumeq mild pyuria, may have UTI, mild pancreatitis, diabetes with hyperglycemia. Electronic imbalance was corrected. . Acute renal failure that is improving. R Ankle edema, MRI negative for osteomyelitis history of bone tuberculosis RECOMMENDATION: Continue IV Vancomycin Continue ART Will try to obtain more information for TB treatment in past Subjective ROS Limited/Unobtainable: Yes Musculoskeletal: Reports: pain, other - in right ankle Allergies: Coded Allergies: No Known Allergies (Unverified , 01/04/19) Objective Vital Signs Last 24 Hour Vital Signs Date Time Temp Pulse Resp B/P (MAP) Pulse Ox O2 Delivery O2 Flow Rate FiO2 01/14/19 09:00 Room Air 01/14/19 08:26 122/62 01/14/19 08:00 98.9 82 20 122/62 (82) 94 01/14/19 04:00 99.3 76 18 137/66 (89) 96 01/14/19 00:00 98.6 77 18 133/58 (83) 92 01/13/19 21:00 Room Air 01/13/19 20:00 98.7 74 17 129/60 (83) 93 01/13/19 16:00 99.3 72 20 122/64 (83) 96 01/13/19 12:00 99.5 72 18 103/57 (72) 97 Height (Feet): 5 Height (Inches): 0.00 Weight (Pounds): 137 General Appearance: no acute distress HEENT: mucous membranes moist Respiratory/Chest: lungs clear Cardiovascular: normal rate Abdomen: soft, non tender Extremities: other - R ankle edema Current Medications Medications (Trade) Dose Ordered Sig/Lebron Route PRN Reason Start Time Stop Time Status Last Admin Dose Admin Acetaminophen (Tylenol) 650 mg Q4H PRN ORAL Prn Headache/Temp > 101 01/04/19 22:00 02/03/19 21:59 01/12/19 17:42 Calcium Carbonate (OsCal D) 1 tab BID ORAL 01/05/19 09:00 02/04/19 08:59 01/14/19 08:26 Captopril (Capoten) 25 mg Q24HRS ORAL 01/05/19 09:00 02/04/19 08:59 01/14/19 08:26 Dextrose (Dextrose 50%) 25 ml Q30M PRN IV Hypoglycemia 01/11/19 08:00 02/10/19 07:59 Dextrose (Dextrose 50%) 50 ml Q30M PRN IV Hypoglycemia 01/11/19 08:00 02/10/19 07:59 Ferrous Sulfate (Feosol) 325 mg TWICE A DAY ORAL 01/05/19 09:00 02/04/19 08:59 01/14/19 08:26 Heparin Sodium (Porcine) (Heparin 5000 units/ml) 5,000 units EVERY 12 HOURS SUBQ 01/07/19 16:45 02/06/19 16:44 01/14/19 08:32 Insulin Aspart (NovoLOG) BEFORE MEALS AND HS SUBQ 01/05/19 06:30 02/04/19 06:29 01/14/19 06:19 Insulin Aspart (NovoLOG) 10 units NOVOTIAC SUBQ 01/14/19 06:30 02/06/19 18:29 Insulin Detemir (Levemir) 30 units DAILY SUBQ 01/14/19 09:00 02/06/19 20:59 01/14/19 08:36 Iopamidol (Isovue-300 100ml) 100 ml NOW PRN INJ Radiology Procedure 01/04/19 17:15 Meloxicam (Mobic) 7.5 mg DAILY ORAL 01/12/19 09:00 02/11/19 08:59 01/14/19 08:26 Morphine Sulfate (Morphine Sulfate) 2 mg Q3HR PRN IVP Moderate Pain (Pain Scale 4-6) 01/12/19 06:45 01/19/19 06:44 Morphine Sulfate (Morphine Sulfate) 4 mg Q3HR PRN IVP Severe Pain (Pain Scale 7-10) 01/12/19 06:45 01/19/19 06:44 01/12/19 12:13 Ondansetron HCl (Zofran) 4 mg Q4H PRN IVP Nausea & Vomiting 01/04/19 21:45 02/03/19 21:44 01/12/19 17:41 Patient Own Medication (Patient's Own Med) 1 ea DAILY@1800 ORAL 01/07/19 18:00 02/04/19 20:59 01/13/19 18:02 Polyethylene Glycol (Miralax) 17 gm BEDTIME ORAL 01/11/19 21:00 02/10/19 20:59 01/13/19 20:15 Pravastatin Sodium (Pravachol) 40 mg BEDTIME ORAL 01/04/19 21:45 02/03/19 21:44 01/13/19 20:15 Sodium Chloride 1,000 ml @ 75 mls/hr [id number] IV 01/04/19 21:45 02/03/19 21:44 01/14/19 06:21 Vancomycin HCl (Vanco rx to dose) 1 ea DAILY PRN MISC Per rx protocol 01/09/19 12:00 02/08/19 11:59 Vancomycin HCl 500 mg/Dextrose 110 ml @ 110 mls/hr Q12HR@0200,1400 IVPB 01/09/19 14:00 01/18/19 13:59 01/14/19 01:18 Vitamin B Complex (Vitamin B Complex) 1 tab DAILY ORAL 01/05/19 09:00 02/04/19 08:59 01/14/19 08:26 Quinton Kaminski MD Jan 14, 2019 10:45
[2019-01-14 12:00] VITALS: BP 114/60
[2019-01-14] MEDS ORDERED: Tubing IV Secondary IV ONE (14:51)
--- NOTE | 2019-01-14 15:08 | General Progress Note ---
Assessment/Plan Problem List: (1) ARF (acute renal failure) ICD Codes: N17.9 - Acute kidney failure, unspecified SNOMED: 58270437 (2) Hyponatremia ICD Codes: E87.1 - Hypo-osmolality and hyponatremia SNOMED: 67383513 (3) Hyperglycemia ICD Codes: R73.9 - Hyperglycemia, unspecified SNOMED: 82706247 (4) UTI (urinary tract infection) ICD Codes: N39.0 - Urinary tract infection, site not specified SNOMED: 84731642 (5) Right ankle effusion ICD Codes: M25.471 - Effusion, right ankle SNOMED: 928431110 Assessment/Plan: Continue antibiotics Discussed with family and RN Adjustment for diabetes medications by Dr. Payne Continue NSAIDs Discussed with case aide Will discharge tomorrow Subjective Allergies: Coded Allergies: No Known Allergies (Unverified , 01/04/19) Subjective Patient is able to walk but has some pain in the ankle Objective Last 24 Hour Vital Signs Date Time Temp Pulse Resp B/P (MAP) Pulse Ox O2 Delivery O2 Flow Rate FiO2 01/14/19 12:00 98.4 68 20 114/60 (78) 95 01/14/19 09:00 Room Air 01/14/19 08:26 122/62 01/14/19 08:00 98.9 82 20 122/62 (82) 94 01/14/19 04:00 99.3 76 18 137/66 (89) 96 01/14/19 00:00 98.6 77 18 133/58 (83) 92 01/13/19 21:00 Room Air 01/13/19 20:00 98.7 74 17 129/60 (83) 93 01/13/19 16:00 99.3 72 20 122/64 (83) 96 Intake and Output 01/13/19 01/14/19 19:00 07:00 Intake Total 1275 ml 1182.5 ml Balance 1275 ml 1182.5 ml Intake Oral 750 ml 360 ml IV Total 525 ml 822.5 ml # Voids 2 2 # Bowel Movements 1 Height (Feet): 5 Height (Inches): 0.00 Weight (Pounds): 137 Cardiovascular: normal rate Respiratory/Chest: lungs clear - Right ankle edema and redness unchanged or may be slightly better Walker Kaminski MD Jan 14, 2019 15:08
[2019-01-14 16:00] VITALS: BP 107/76
[2019-01-14] MEDS: TRIUMEQ ORAL SCH (17:05)
--- NOTE | 2019-01-14 17:45 | Progress Note ---
DATE: 01/13/2019 NOTE: POOR AUDIO SUBJECTIVE: The patient's medical condition has not changed. She is comfortable in bed. She is unable to bear weight for short period of time. ambulate less than 50 steps. PHYSICAL EXAMINATION: VITAL SIGNS: Blood pressure is 132/68, pulse is 77, respirations are 18, and temperature 98.6. HEENT: Eyes were normal. ENT, mucous membranes were moist and intact. NECK: Supple with no JVD without lymph nodes. LUNGS: Clear. HEART: Normal sounds with regular beat. ABDOMEN: Soft and nontender with normal bowel sounds. EXTREMITIES: Warm without cyanosis, clubbing, or edema. The right ankle is warm, swollen, and tender with some intraarticular and edema can be felt in the periarticular space. PLAN: Workup still now is negative in regard to x-ray. An MRI laboratory test revealed only the presence of inflammation, however, synovial fluid. In regard to the patient's history, she has been more than five times and revealed the diagnosis synovial biopsy will be done as well. We will repeat CBC and BMP . Patrizia Larson M.D. DR: WENID JOB#: [id number] CC:
[2019-01-14 20:00] VITALS: BP 109/58
[2019-01-14] MEDS ORDERED: Lidocaine 2% MPF 5ml Vial INJ ONE (20:15)
[2019-01-14] MEDS: Miralax 17gm pkt ORAL SCH (20:37)
[2019-01-15] VITALS: BP 102/56
[2019-01-15] MEDS: Vancomycin 500mg/D5W 110ml IVPB SCH ×2 (02:27)
[2019-01-15 04:00] VITALS: BP 106/60
[2019-01-15] MEDS: Morphine Sulfate 4mg/ml Inj (IV USE ONLY) IVP PRN (06:15)
[2019-01-15] MEDS: NovoLOG Insulin Flexpen SUBQ SCH ×7 (06:24→22:27)
--- NOTE | 2019-01-15 06:39 | General Progress Note ---
Assessment/Plan Problem List: (1) Diabetes mellitus out of control ICD Codes: E11.65 - Type 2 diabetes mellitus with hyperglycemia SNOMED: 91315493, 185672778 (2) Hyperglycemia ICD Codes: R73.9 - Hyperglycemia, unspecified SNOMED: 95139572 (3) Pancreatitis ICD Codes: K85.90 - Acute pancreatitis without necrosis or infection, unspecified SNOMED: 22356337 (4) Renal insufficiency ICD Codes: N28.9 - Disorder of kidney and ureter, unspecified SNOMED: 535157557, 175209881 Assessment/Plan: continue Levemir 30 units qam increase Novolog to 12 units ac tid continue NISS ac / hs she will certainly stay on insulin regimen after DC patient family need to be instructed on how to use insulin "pen" patient is followed by her own endo as OP - I asked Jennifer to make a close follow up appointment Subjective Allergies: Coded Allergies: No Known Allergies (Unverified , 01/04/19) All Systems: reviewed and negative except above Subjective events noted mealtime glucose is elevated Item Value Date Time Bedside Blood Glucose 147 mg/dl H 01/15/19 0625 Bedside Blood Glucose Critically High Result 01/14/19 2100 Bedside Blood Glucose 284 mg/dl H 01/14/19 1658 Bedside Blood Glucose 310 mg/dl H 01/14/19 1218 Bedside Blood Glucose 253 mg/dl H 01/14/19 0836 Bedside Blood Glucose 253 mg/dl H 01/14/19 0620 Objective Last 24 Hour Vital Signs Date Time Temp Pulse Resp B/P (MAP) Pulse Ox O2 Delivery O2 Flow Rate FiO2 01/15/19 04:00 99.4 64 16 106/60 (75) 95 01/15/19 00:00 99.1 65 16 102/56 (71) 96 01/14/19 21:00 Room Air 01/14/19 20:00 98.8 74 17 109/58 (75) 98 01/14/19 16:00 99.0 74 20 107/76 (86) 98 01/14/19 12:00 98.4 68 20 114/60 (78) 95 01/14/19 09:00 Room Air 01/14/19 08:26 122/62 01/14/19 08:00 98.9 82 20 122/62 (82) 94 Intake and Output 01/14/19 01/15/19 19:00 07:00 Intake Total 1505 ml 1110 ml Balance 1505 ml 1110 ml Intake Oral 720 ml 360 ml IV Total 785 ml 750 ml # Voids 3 2 # Bowel Movements 2 1 Height (Feet): 5 Height (Inches): 0.00 Weight (Pounds): 142 General Appearance: no apparent distress Neck: normal alignment Cardiovascular: normal rate Respiratory/Chest: lungs clear Abdomen: normal bowel sounds Pelvis: normal external exam Objective Current Medications Medications (Trade) Dose Ordered Sig/Lebron Route PRN Reason Start Time Stop Time Status Last Admin Dose Admin Acetaminophen (Tylenol) 650 mg Q4H PRN ORAL Prn Headache/Temp > 101 01/04/19 22:00 02/03/19 21:59 01/12/19 17:42 Calcium Carbonate (OsCal D) 1 tab BID ORAL 01/05/19 09:00 02/04/19 08:59 01/14/19 17:06 Captopril (Capoten) 25 mg Q24HRS ORAL 01/05/19 09:00 02/04/19 08:59 01/14/19 08:26 Dextrose (Dextrose 50%) 25 ml Q30M PRN IV Hypoglycemia 01/11/19 08:00 02/10/19 07:59 Dextrose (Dextrose 50%) 50 ml Q30M PRN IV Hypoglycemia 01/11/19 08:00 02/10/19 07:59 Ferrous Sulfate (Feosol) 325 mg TWICE A DAY ORAL 01/05/19 09:00 02/04/19 08:59 01/14/19 17:06 Heparin Sodium (Porcine) (Heparin 5000 units/ml) 5,000 units EVERY 12 HOURS SUBQ 01/07/19 16:45 02/06/19 16:44 01/14/19 20:39 Insulin Aspart (NovoLOG) BEFORE MEALS AND HS SUBQ 01/05/19 06:30 02/04/19 06:29 01/15/19 06:25 Insulin Aspart (NovoLOG) 10 units NOVOTIAC SUBQ 01/14/19 06:30 02/06/19 18:29 01/15/19 06:24 Insulin Detemir (Levemir) 30 units DAILY SUBQ 01/14/19 09:00 02/06/19 20:59 01/14/19 08:36 Iopamidol (Isovue-300 100ml) 100 ml NOW PRN INJ Radiology Procedure 01/04/19 17:15 Meloxicam (Mobic) 7.5 mg DAILY ORAL 01/12/19 09:00 02/11/19 08:59 01/14/19 08:26 Morphine Sulfate (Morphine Sulfate) 2 mg Q3HR PRN IVP Moderate Pain (Pain Scale 4-6) 01/12/19 06:45 01/19/19 06:44 Morphine Sulfate (Morphine Sulfate) 4 mg Q3HR PRN IVP Severe Pain (Pain Scale 7-10) 01/12/19 06:45 01/19/19 06:44 01/15/19 06:15 Ondansetron HCl (Zofran) 4 mg Q4H PRN IVP Nausea & Vomiting 01/04/19 21:45 02/03/19 21:44 01/12/19 17:41 Patient Own Medication (Patient's Own Med) 1 ea DAILY@1800 ORAL 01/07/19 18:00 02/04/19 20:59 01/14/19 17:05 Polyethylene Glycol (Miralax) 17 gm BEDTIME ORAL 01/11/19 21:00 02/10/19 20:59 01/14/19 20:37 Pravastatin Sodium (Pravachol) 40 mg BEDTIME ORAL 01/04/19 21:45 02/03/19 21:44 01/14/19 20:37 Sodium Chloride 1,000 ml @ 75 mls/hr [id number] IV 01/04/19 21:45 02/03/19 21:44 01/14/19 20:37 Vancomycin HCl (Vanco rx to dose) 1 ea DAILY PRN MISC Per rx protocol 01/09/19 12:00 02/08/19 11:59 Vancomycin HCl 500 mg/Dextrose 110 ml @ 110 mls/hr Q12HR@0200,1400 IVPB 01/09/19 14:00 01/18/19 13:59 01/15/19 02:27 Vitamin B Complex (Vitamin B Complex) 1 tab DAILY ORAL 01/05/19 09:00 02/04/19 08:59 01/14/19 08:26 Jaxson Payne MD January 15, 2019 06:39
[2019-01-15 08:00] VITALS: BP 133/68
[2019-01-15] MEDS: Calcium Carbonate 500mg w/Vit D 200iu tab ORAL SCH ×2 (09:17→17:14)
[2019-01-15] MEDS: Captopril 25mg tab ORAL SCH (09:17)
[2019-01-15] MEDS: Vitamin B Complex Tab ORAL SCH (09:17)
[2019-01-15] MEDS: Heparin 5000 units/ml inj SUBQ SCH ×2 (09:19→20:50)
[2019-01-15] MEDS: Levemir Flexpen SUBQ SCH (09:20)
[2019-01-15 12:00] VITALS: BP 135/68
--- NOTE | 2019-01-15 12:11 | Infectious Diseases Prog Note ---
Assessment/Plan Assessment/Plan IMPRESSION: HIV on Triumeq mild pyuria, may have UTI, mild pancreatitis, diabetes with hyperglycemia. Electronic imbalance was corrected. . Acute renal failure that is improving. R Ankle edema, MRI negative for osteomyelitis -? reactive tenosynovitis history of bone tuberculosis RECOMMENDATION: Discontinue IV Vancomycin Continue ART Will be followed up by [facility] sprinkler in outpatient Case was D/W PMD Subjective ROS Limited/Unobtainable: No Respiratory: Reports: no symptoms Cardiovascular: Reports: no symptoms Gastrointestinal/Abdominal: Reports: no symptoms Genitourinary: Reports: no symptoms Musculoskeletal: Reports: pain, swelling, other - in right ankle Allergies: Coded Allergies: No Known Allergies (Unverified , 01/04/19) Objective Vital Signs Last 24 Hour Vital Signs Date Time Temp Pulse Resp B/P (MAP) Pulse Ox O2 Delivery O2 Flow Rate FiO2 01/15/19 09:17 133/93 01/15/19 09:00 Room Air 01/15/19 08:00 98.5 69 16 133/68 (89) 95 01/15/19 04:00 99.4 64 16 106/60 (75) 95 01/15/19 00:00 99.1 65 16 102/56 (71) 96 01/14/19 21:00 Room Air 01/14/19 20:00 98.8 74 17 109/58 (75) 98 01/14/19 16:00 99.0 74 20 107/76 (86) 98 Height (Feet): 5 Height (Inches): 0.00 Weight (Pounds): 142 General Appearance: no acute distress HEENT: mucous membranes moist Respiratory/Chest: lungs clear Cardiovascular: normal rate Abdomen: soft, non tender Extremities: other - R ankle edema Current Medications Medications (Trade) Dose Ordered Sig/Lebron Route PRN Reason Start Time Stop Time Status Last Admin Dose Admin Acetaminophen (Tylenol) 650 mg Q4H PRN ORAL Prn Headache/Temp > 101 01/04/19 22:00 02/03/19 21:59 01/12/19 17:42 Calcium Carbonate (OsCal D) 1 tab BID ORAL 01/05/19 09:00 02/04/19 08:59 01/15/19 09:17 Captopril (Capoten) 25 mg Q24HRS ORAL 01/05/19 09:00 02/04/19 08:59 01/15/19 09:17 Dextrose (Dextrose 50%) 25 ml Q30M PRN IV Hypoglycemia 01/11/19 08:00 02/10/19 07:59 Dextrose (Dextrose 50%) 50 ml Q30M PRN IV Hypoglycemia 01/11/19 08:00 02/10/19 07:59 Ferrous Sulfate (Feosol) 325 mg TWICE A DAY ORAL 01/05/19 09:00 02/04/19 08:59 01/15/19 09:17 Heparin Sodium (Porcine) (Heparin 5000 units/ml) 5,000 units EVERY 12 HOURS SUBQ 01/07/19 16:45 02/06/19 16:44 01/15/19 09:19 Insulin Aspart (NovoLOG) BEFORE MEALS AND HS SUBQ 01/05/19 06:30 02/04/19 06:29 01/15/19 06:25 Insulin Aspart (NovoLOG) 12 units NOVOTIAC SUBQ 01/15/19 11:50 02/06/19 18:29 Insulin Detemir (Levemir) 30 units DAILY SUBQ 01/14/19 09:00 02/06/19 20:59 01/15/19 09:20 Iopamidol (Isovue-300 100ml) 100 ml NOW PRN INJ Radiology Procedure 01/04/19 17:15 Meloxicam (Mobic) 7.5 mg DAILY ORAL 01/12/19 09:00 02/11/19 08:59 01/15/19 09:17 Morphine Sulfate (Morphine Sulfate) 2 mg Q3HR PRN IVP Moderate Pain (Pain Scale 4-6) 01/12/19 06:45 01/19/19 06:44 Morphine Sulfate (Morphine Sulfate) 4 mg Q3HR PRN IVP Severe Pain (Pain Scale 7-10) 01/12/19 06:45 01/19/19 06:44 01/15/19 06:15 Ondansetron HCl (Zofran) 4 mg Q4H PRN IVP Nausea & Vomiting 01/04/19 21:45 02/03/19 21:44 01/12/19 17:41 Patient Own Medication (Patient's Own Med) 1 ea DAILY@1800 ORAL 01/07/19 18:00 02/04/19 20:59 01/14/19 17:05 Polyethylene Glycol (Miralax) 17 gm BEDTIME ORAL 01/11/19 21:00 02/10/19 20:59 01/14/19 20:37 Pravastatin Sodium (Pravachol) 40 mg BEDTIME ORAL 01/04/19 21:45 02/03/19 21:44 01/14/19 20:37 Sodium Chloride 1,000 ml @ 75 mls/hr [id number] IV 01/04/19 21:45 02/03/19 21:44 01/14/19 20:37 Vancomycin HCl (Vanco rx to dose) 1 ea DAILY PRN MISC Per rx protocol 01/09/19 12:00 02/08/19 11:59 Vancomycin HCl 500 mg/Dextrose 110 ml @ 110 mls/hr Q12HR@0200,1400 IVPB 01/09/19 14:00 01/18/19 13:59 01/15/19 02:27 Vitamin B Complex (Vitamin B Complex) 1 tab DAILY ORAL 01/05/19 09:00 02/04/19 08:59 01/15/19 09:17 Quinton Kaminski MD January 15, 2019 12:11
--- NOTE | 2019-01-15 14:22 | General Progress Note ---
Assessment/Plan Problem List: (1) ARF (acute renal failure) ICD Codes: N17.9 - Acute kidney failure, unspecified SNOMED: 14393429 (2) Hyponatremia ICD Codes: E87.1 - Hypo-osmolality and hyponatremia SNOMED: 52033873 (3) Hyperglycemia ICD Codes: R73.9 - Hyperglycemia, unspecified SNOMED: 31185627 (4) UTI (urinary tract infection) ICD Codes: N39.0 - Urinary tract infection, site not specified SNOMED: 72160829 (5) Right ankle effusion ICD Codes: M25.471 - Effusion, right ankle SNOMED: 198356667 Assessment/Plan: Dc abxs Discussed with daughter DC today Subjective Allergies: Coded Allergies: No Known Allergies (Unverified , 01/04/19) Subjective Patient is able to walk but has some pain in the ankle Objective Last 24 Hour Vital Signs Date Time Temp Pulse Resp B/P (MAP) Pulse Ox O2 Delivery O2 Flow Rate FiO2 01/15/19 09:17 133/93 01/15/19 09:00 Room Air 01/15/19 08:00 98.5 69 16 133/68 (89) 95 01/15/19 04:00 99.4 64 16 106/60 (75) 95 01/15/19 00:00 99.1 65 16 102/56 (71) 96 01/14/19 21:00 Room Air 01/14/19 20:00 98.8 74 17 109/58 (75) 98 01/14/19 16:00 99.0 74 20 107/76 (86) 98 Intake and Output 01/14/19 01/15/19 18:59 06:59 Intake Total 1467.5 ml 1185 ml Balance 1467.5 ml 1185 ml Intake Oral 720 ml 360 ml IV Total 747.5 ml 825 ml # Voids 3 2 # Bowel Movements 2 1 Height (Feet): 5 Height (Inches): 0.00 Weight (Pounds): 142 Cardiovascular: normal rate Respiratory/Chest: lungs clear Extremities: other - ankle better Walker Kaminski MD January 15, 2019 14:22
--- NOTE | 2019-01-15 14:47 | Diagnostic Imaging Report ---
Indication: Osteoporosis Technique: 10 mm thick slices obtained through the L2, L3, and L4 vertebral bodies. Cortical and trabecular regions of interest were drawn. The average trabecular bone mineral density was calculated. Total dose length product 30.92 mGycm. CTDIvol(s) 3, 3, 3 mGy. Dose reduction achieved using automated exposure control Comparison: none Findings: The calculated bone mineral density is 120 mg ca-MILLER/ml. The T score is -1.4. This indicates the patient's bone mineral density is 1.4 standard deviations below that of normal 20-year-old females. The Z score is 1.39. This indicates the patient's bone mineral density is 1.39 standard deviations above that of age-matched controls Impression: Patient mineral density is 10-25% below that of normal 20-year-old females. Patient is considered osteopenic by WHO criteria. Insufficiency fracture risk is moderate The CT scanner at [facility] is accredited by the [employer] and the scans are performed using protocols designed to limit radiation exposure to as low as reasonably achievable to attain images of sufficient resolution adequate for diagnostic evaluation.
[2019-01-15] MEDS ORDERED: LEVEMIR FL100 UNIT/1 SUBQ (15:03)
[2019-01-15] MEDS ORDERED: MOBIC7.5 MG ORAL (15:03)
[2019-01-15] MEDS ORDERED: NOVOLOG100 UNITS1 SUBQ ×2 (15:03)
[2019-01-15 16:00] VITALS: BP 138/67
[2019-01-15] MEDS ORDERED: NS 500ML ONE (16:47)
[2019-01-15] MEDS ORDERED: Tubing IV Secondary IV ONE (16:48)
[2019-01-15] MEDS: TRIUMEQ ORAL SCH (17:14)
[2019-01-15 20:00] VITALS: BP 127/60
[2019-01-15] MEDS: Miralax 17gm pkt ORAL SCH (20:45)
[2019-01-16] VITALS: BP 121/71
[2019-01-16 04:00] VITALS: BP 143/73
[2019-01-16] MEDS: NovoLOG Insulin Flexpen SUBQ SCH ×6 (06:26→17:16)
--- NOTE | 2019-01-16 06:44 | General Progress Note ---
Assessment/Plan Problem List: (1) Diabetes mellitus out of control ICD Codes: E11.65 - Type 2 diabetes mellitus with hyperglycemia SNOMED: 07156472, 342133693 (2) Hyperglycemia ICD Codes: R73.9 - Hyperglycemia, unspecified SNOMED: 08262143 (3) Pancreatitis ICD Codes: K85.90 - Acute pancreatitis without necrosis or infection, unspecified SNOMED: 17282645 (4) Renal insufficiency ICD Codes: N28.9 - Disorder of kidney and ureter, unspecified SNOMED: 537981171, 982951536 Assessment/Plan: continue Levemir 30 units qam continue Novolog 12 units ac tid continue NISS ac / hs she will certainly stay on insulin regimen after DC patient family were instructed by RN on how to use insulin "pen" patient is followed by her own endo as OP Rx for insulin pens and needles and glucometer kit and supplies left in chart discussed with Dr Kaminski Subjective Allergies: Coded Allergies: No Known Allergies (Unverified , 01/04/19) All Systems: reviewed and negative except above Subjective events noted Item Value Date Time Bedside Blood Glucose 131 mg/dl H 01/16/19 0630 Bedside Blood Glucose 363 mg/dl H 01/15/19 2227 Bedside Blood Glucose 312 mg/dl H 01/15/19 1836 Bedside Blood Glucose 199 mg/dl H 01/15/19 1405 Bedside Blood Glucose 147 mg/dl H 01/15/19 0920 Bedside Blood Glucose 147 mg/dl H 01/15/19 0630 Objective Last 24 Hour Vital Signs Date Time Temp Pulse Resp B/P (MAP) Pulse Ox O2 Delivery O2 Flow Rate FiO2 01/16/19 04:00 98.4 67 18 143/73 (96) 94 01/16/19 00:00 98.2 67 16 121/71 (88) 98 01/15/19 21:00 Room Air 01/15/19 20:00 98.9 63 16 127/60 (82) 95 01/15/19 16:00 98.0 60 16 138/67 (90) 01/15/19 12:00 98.5 16 135/68 (90) 95 01/15/19 09:17 133/93 01/15/19 09:00 Room Air 01/15/19 08:00 98.5 69 16 133/68 (89) 95 Intake and Output 01/15/19 01/16/19 19:00 07:00 Intake Total 900 ml 1311 ml Balance 900 ml 1311 ml Intake Oral 100 ml IV Total 900 ml 675 ml Other 536 ml # Voids 4 # Bowel Movements 1 Height (Feet): 5 Height (Inches): 0.00 Weight (Pounds): 142 General Appearance: no apparent distress Neck: normal alignment Cardiovascular: normal rate Respiratory/Chest: lungs clear Abdomen: normal bowel sounds Objective Current Medications Medications (Trade) Dose Ordered Sig/Lebron Route PRN Reason Start Time Stop Time Status Last Admin Dose Admin Acetaminophen (Tylenol) 650 mg Q4H PRN ORAL Prn Headache/Temp > 101 01/04/19 22:00 02/03/19 21:59 01/12/19 17:42 Calcium Carbonate (OsCal D) 1 tab BID ORAL 01/05/19 09:00 02/04/19 08:59 01/15/19 17:14 Captopril (Capoten) 25 mg Q24HRS ORAL 01/05/19 09:00 02/04/19 08:59 01/15/19 09:17 Dextrose (Dextrose 50%) 25 ml Q30M PRN IV Hypoglycemia 01/11/19 08:00 02/10/19 07:59 Dextrose (Dextrose 50%) 50 ml Q30M PRN IV Hypoglycemia 01/11/19 08:00 02/10/19 07:59 Ferrous Sulfate (Feosol) 325 mg TWICE A DAY ORAL 01/05/19 09:00 02/04/19 08:59 01/15/19 17:14 Heparin Sodium (Porcine) (Heparin 5000 units/ml) 5,000 units EVERY 12 HOURS SUBQ 01/07/19 16:45 02/06/19 16:44 01/15/19 20:50 Insulin Aspart (NovoLOG) BEFORE MEALS AND HS SUBQ 01/05/19 06:30 02/04/19 06:29 01/16/19 06:26 Insulin Aspart (NovoLOG) 12 units NOVOTIAC SUBQ 01/15/19 11:50 02/06/19 18:29 01/16/19 06:27 Insulin Detemir (Levemir) 30 units DAILY SUBQ 01/14/19 09:00 02/06/19 20:59 01/15/19 09:20 Iopamidol (Isovue-300 100ml) 100 ml NOW PRN INJ Radiology Procedure 01/04/19 17:15 Meloxicam (Mobic) 7.5 mg DAILY ORAL 01/12/19 09:00 02/11/19 08:59 01/15/19 09:17 Morphine Sulfate (Morphine Sulfate) 2 mg Q3HR PRN IVP Moderate Pain (Pain Scale 4-6) 01/12/19 06:45 01/19/19 06:44 Morphine Sulfate (Morphine Sulfate) 4 mg Q3HR PRN IVP Severe Pain (Pain Scale 7-10) 01/12/19 06:45 01/19/19 06:44 01/15/19 06:15 Ondansetron HCl (Zofran) 4 mg Q4H PRN IVP Nausea & Vomiting 01/04/19 21:45 02/03/19 21:44 01/12/19 17:41 Patient Own Medication (Patient's Own Med) 1 ea DAILY@1800 ORAL 01/07/19 18:00 02/04/19 20:59 01/15/19 17:14 Polyethylene Glycol (Miralax) 17 gm BEDTIME ORAL 01/11/19 21:00 02/10/19 20:59 01/15/19 20:45 Pravastatin Sodium (Pravachol) 40 mg BEDTIME ORAL 01/04/19 21:45 02/03/19 21:44 01/15/19 20:45 Sodium Chloride 1,000 ml @ 75 mls/hr [id number] IV 01/04/19 21:45 02/03/19 21:44 01/16/19 00:43 Vitamin B Complex (Vitamin B Complex) 1 tab DAILY ORAL 01/05/19 09:00 02/04/19 08:59 01/15/19 09:17 Jaxson Payne MD January 16, 2019 06:44
[2019-01-16 08:00] VITALS: BP 124/64
[2019-01-16] MEDS: Captopril 25mg tab ORAL SCH (08:14)
[2019-01-16] MEDS: Vitamin B Complex Tab ORAL SCH (08:14)
[2019-01-16] MEDS: Calcium Carbonate 500mg w/Vit D 200iu tab ORAL SCH ×2 (08:14→17:27)
[2019-01-16] MEDS: Heparin 5000 units/ml inj SUBQ SCH (08:16)
[2019-01-16] MEDS: Levemir Flexpen SUBQ SCH (08:35)
[2019-01-16] MEDS ORDERED: Meningococcal Polysacc Vaccine IM ONE (11:00)
[2019-01-16] MEDS ORDERED: Pneumococcal Vaccine 25mcg/0.5ml IM ONE (11:00)
[2019-01-16 12:00] VITALS: BP 144/71
--- NOTE | 2019-01-16 12:05 | General Progress Note ---
Assessment/Plan Problem List: (1) ARF (acute renal failure) ICD Codes: N17.9 - Acute kidney failure, unspecified SNOMED: 77175828 (2) Hyponatremia ICD Codes: E87.1 - Hypo-osmolality and hyponatremia SNOMED: 91042459 (3) Hyperglycemia ICD Codes: R73.9 - Hyperglycemia, unspecified SNOMED: 58807171 (4) UTI (urinary tract infection) ICD Codes: N39.0 - Urinary tract infection, site not specified SNOMED: 05548447 (5) Right ankle effusion ICD Codes: M25.471 - Effusion, right ankle SNOMED: 505781486 Assessment/Plan: Dc today Subjective Allergies: Coded Allergies: No Known Allergies (Unverified , 01/04/19) Subjective all noted Objective Last 24 Hour Vital Signs Date Time Temp Pulse Resp B/P (MAP) Pulse Ox O2 Delivery O2 Flow Rate FiO2 01/16/19 09:00 Room Air 01/16/19 08:14 122/67 01/16/19 08:00 98.8 74 124/64 (84) 01/16/19 04:00 98.4 67 18 143/73 (96) 94 01/16/19 00:00 98.2 67 16 121/71 (88) 98 01/15/19 21:00 Room Air 01/15/19 20:00 98.9 63 16 127/60 (82) 95 01/15/19 16:00 98.0 60 16 138/67 (90) Intake and Output 01/15/19 01/16/19 19:00 07:00 Intake Total 900 ml 1311 ml Balance 900 ml 1311 ml Intake Oral 100 ml IV Total 900 ml 675 ml Other 536 ml # Voids 4 # Bowel Movements 1 Height (Feet): 5 Height (Inches): 0.00 Weight (Pounds): 142 Walker Kaminski MD January 16, 2019 12:05
--- NOTE | 2019-01-16 12:07 | Infectious Diseases Prog Note ---
Assessment/Plan Assessment/Plan IMPRESSION: HIV on Triumeq mild pyuria, may have UTI, mild pancreatitis, diabetes with hyperglycemia. Electronic imbalance was corrected. . Acute renal failure that is improving. R Ankle edema, MRI negative for osteomyelitis -? 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 outpatient According to department of health was positive for MTB in joint treated between 01/27/2011 & 08/02/2011 at that lisandro used name of Harry Subjective ROS Limited/Unobtainable: No Constitutional: Reports: no symptoms Respiratory: Reports: no symptoms Gastrointestinal/Abdominal: Reports: no symptoms Neurologic: Reports: no symptoms Musculoskeletal: Reports: pain, swelling, other - right ankle Allergies: Coded Allergies: No Known Allergies (Unverified , 01/04/19) Objective Vital Signs Last 24 Hour Vital Signs Date Time Temp Pulse Resp B/P (MAP) Pulse Ox O2 Delivery O2 Flow Rate FiO2 01/16/19 09:00 Room Air 01/16/19 08:14 122/67 01/16/19 08:00 98.8 74 124/64 (84) 01/16/19 04:00 98.4 67 18 143/73 (96) 94 01/16/19 00:00 98.2 67 16 121/71 (88) 98 01/15/19 21:00 Room Air 01/15/19 20:00 98.9 63 16 127/60 (82) 95 01/15/19 16:00 98.0 60 16 138/67 (90) Height (Feet): 5 Height (Inches): 0.00 Weight (Pounds): 142 General Appearance: no acute distress HEENT: mucous membranes moist Respiratory/Chest: lungs clear Cardiovascular: normal rate Abdomen: soft, non tender Extremities: other - right ankle edema Neurologic/Psychiatric: alert, oriented x 3, responsive Current Medications Medications (Trade) Dose Ordered Sig/Lebron Route PRN Reason Start Time Stop Time Status Last Admin Dose Admin Acetaminophen (Tylenol) 650 mg Q4H PRN ORAL Prn Headache/Temp > 101 01/04/19 22:00 02/03/19 21:59 01/12/19 17:42 Calcium Carbonate (OsCal D) 1 tab BID ORAL 01/05/19 09:00 02/04/19 08:59 01/16/19 08:14 Captopril (Capoten) 25 mg Q24HRS ORAL 01/05/19 09:00 02/04/19 08:59 01/16/19 08:14 Dextrose (Dextrose 50%) 25 ml Q30M PRN IV Hypoglycemia 01/11/19 08:00 02/10/19 07:59 Dextrose (Dextrose 50%) 50 ml Q30M PRN IV Hypoglycemia 01/11/19 08:00 02/10/19 07:59 Ferrous Sulfate (Feosol) 325 mg TWICE A DAY ORAL 01/05/19 09:00 02/04/19 08:59 01/16/19 08:13 Heparin Sodium (Porcine) (Heparin 5000 units/ml) 5,000 units EVERY 12 HOURS SUBQ 01/07/19 16:45 02/06/19 16:44 01/16/19 08:16 Insulin Aspart (NovoLOG) BEFORE MEALS AND HS SUBQ 01/05/19 06:30 02/04/19 06:29 01/16/19 06:26 Insulin Aspart (NovoLOG) 12 units NOVOTIAC SUBQ 01/15/19 11:50 02/06/19 18:29 01/16/19 06:27 Insulin Detemir (Levemir) 30 units DAILY SUBQ 01/14/19 09:00 02/06/19 20:59 01/16/19 08:35 Iopamidol (Isovue-300 100ml) 100 ml NOW PRN INJ Radiology Procedure 01/04/19 17:15 Meloxicam (Mobic) 7.5 mg DAILY ORAL 01/12/19 09:00 02/11/19 08:59 01/16/19 08:14 Morphine Sulfate (Morphine Sulfate) 2 mg Q3HR PRN IVP Moderate Pain (Pain Scale 4-6) 01/12/19 06:45 01/19/19 06:44 Morphine Sulfate (Morphine Sulfate) 4 mg Q3HR PRN IVP Severe Pain (Pain Scale 7-10) 01/12/19 06:45 01/19/19 06:44 01/15/19 06:15 Ondansetron HCl (Zofran) 4 mg Q4H PRN IVP Nausea & Vomiting 01/04/19 21:45 02/03/19 21:44 01/12/19 17:41 Patient Own Medication (Patient's Own Med) 1 ea DAILY@1800 ORAL 01/07/19 18:00 02/04/19 20:59 01/15/19 17:14 Polyethylene Glycol (Miralax) 17 gm BEDTIME ORAL 01/11/19 21:00 02/10/19 20:59 01/15/19 20:45 Pravastatin Sodium (Pravachol) 40 mg BEDTIME ORAL 01/04/19 21:45 02/03/19 21:44 01/15/19 20:45 Sodium Chloride 1,000 ml @ 75 mls/hr [id number] IV 01/04/19 21:45 02/03/19 21:44 01/16/19 00:43 Vitamin B Complex (Vitamin B Complex) 1 tab DAILY ORAL 01/05/19 09:00 02/04/19 08:59 01/16/19 08:14 Quinton Kaminski MD January 16, 2019 12:07
[2019-01-16 16:00] VITALS: BP 143/70
[2019-01-16] MEDS: TRIUMEQ ORAL SCH (17:27)
--- NOTE | 2019-01-17 12:52 | Discharge Summary ---
Discharge Summary Discharge Summary _ DATE OF ADMISSION: 01/04/2019 DATE OF DISCHARGE: 01/16/2019 DISCHARGED BY: Dr. Walker Kaminski CONSULTANTS: Dr. Jaxson Kaminski BRIEF HOSPITAL COURSE: Patient is a 73-year-old female who presented with left-sided flank pain, and dysuria. She recently came back from [place]. She has medical history significant for diabetes and hypertension. She reported history of HIV. She was treated with ciprofloxacin, clindamycin and ketoconazole as outpatient. On evaluation at ED, vital signs were stable. Blood work did not show any leukocytosis. Hemoglobin and hematocrit were stable. CMP showed elevated blood glucose. Sodium was 128, potassium 3.2. Anion gap was normal. Creatinine was elevated to 1.7 lipase was elevated to 444. Urinalysis 5-10 WBC , 2-4 RBC, 2+ leukocyte esterase, negative nitrite, 4+ glucose and 1+ protein. CT of of the abdomen and pelvis was negative. She was found to have urinary tract infection. She was admitted for further care. She was given IV normal saline. ID specialist was consulted. She was given ceftriaxone. Continued on antiretroviral therapy,Triumeq. Patient had pyuria. Urine was sent for culture. Hand Bunch Maker was consulted. Patient was given Levemir and NovoLog. Hemoglobin A1c 13. Metformin and glipizide were placed on hold. Patient complained of right ankle swelling for 12 months. Right ankle x-ray done did not show any acute process. Dr. Larson was consulted. Patient had mild to moderate pain that increased with weightbearing. Patient stated that she was admitted to [facility] and at that time underwent multiple investigative assessment including skin biopsy that was negative. She finally had a bone biopsy that revealed bone TB. She was placed in isolation and received anti-TB medication. She was started empirically on IV vancomycin. According to department of health, patient was positive for MTB in the joint and was treated between 01/27/2011 and 08/02/2011 and at that time used name of Harry. Right ankle MRI was done and showed edema of the medial and lateral subcutaneous fat. There was no evidence of osteomyelitis. No evidence of soft tissue abscess. Fluid was seen within several major tendon sheath. CT of the bones showed mineral density 10 to 25% below that of a normal 20-year- old female. Patient considered to be osteopenic. There was no evidence of osteomyelitis. Vancomycin was discontinued. She was given PT mobility. She was provided with DME. Patient will need to stay on insulin regimen upon discharge. Patient and family were instructed on how to use insulin pen. Patient was eventually discharged home. FINAL DIAGNOSES: Hyponatremia Urinary tract infection Diabetes mellitus out of control Right ankle effusion HIV Mild pancreatitis, resolved History of bone tuberculosis DISPOSITION: Patient was discharged home with home health. DISCHARGE MEDICATIONS: Refer to Discharge Medication List. DISCHARGE INSTRUCTIONS: Follow-up in a week. I have been assigned to complete a discharge summary on this account, I was not involved with the patient's management. Nitza Lu NP January 17, 2019 12:52
== END 2019-01-16 18:33 | disposition home health service (06) | DRG 890 ==
LOC: EMR 18:09 → 3E 19:33 → EDBEDREQ 19:53 → 3E 01-06 08:13
DX: N17.9 Acute kidney failure, unspecified (principal); B20 Human immunodeficiency virus [HIV] disease; A31.8 Other mycobacterial infections; K85.90 Acute pancreatitis without necrosis or infection, unspecified; E11.65 Type 2 diabetes mellitus with hyperglycemia; E87.1 Hypo-osmolality and hyponatremia; I69.354 Hemiplegia and hemiparesis following cerebral infarction affecting left non-dominant side; N39.0 Urinary tract infection, site not specified; M25.471 Effusion, right ankle; I10 Essential (primary) hypertension; Z86.11 Personal history of tuberculosis; Z79.4 Long term (current) use of insulin
CPT/HCPCS: 36415; 71045; 74176; 77078; 80048; 80053; 80061; 80202; 81003; 82150; 82306; 82565; 82570; 82947; 82962; 83036; 83690; 84300; 84550; 85025; 85651; 86039; 86140; 86431; 86580; 87086; 90732; 93971; 96361; 96374; 96375; 96376; 99285; A9585; J1815; J2405; J8499; S5561

== ENCOUNTER 2019-01-23 12:08 | Outpatient (CLI) | payer MEDICARE, MEDICAID ==
[~2019-01-23 12:08] MED LIST: FERROUS SULFAT325 MG ORAL; GLIPIZIDE5 MG ORAL; LEVEMIR FL100 UNIT/1 SUBQ; METFORMIN HCL500 M1 ORAL; MOBIC7.5 MG ORAL; NOVOLOG100 UNITS1 SUBQ; OSCAL D500 MG ORAL; PRAVASTATIN SOD20 M1 ORAL; TRIUMEQ 600-501 EACH PO; VITAMIN B COMP1 EAC2 ORAL
[2019-01-23 13:20] LABS: BASOPHILS % (AUTO) 0.8 % (0.0-2.0); EOSINOPHILS % (AUTO) 1.6 % (0.0-3.0); HEMATOCRIT 32.3 % (37.0-47.0); HEMOGLOBIN 10.9 G/DL (12.0-16.0); LYMPHOCYTES % (AUTO) 32.4 % (20.0-45.0); MEAN CORPUSCULAR VOLUME 91 FL (80-99); MONOCYTES % (AUTO) 8.3 % (1.0-10.0); PLATELET COUNT 379 K/UL (150-450); RED BLOOD COUNT 3.54 M/UL (4.20-5.40); WHITE BLOOD COUNT 5.9 K/UL (4.8-10.8)
[2019-01-23 13:23] LABS: APPEARANCE,URINE CLEAR; BILIRUBIN, URINE NEGATIVE (NEGATIVE); COLOR,URINE YELLOW; GLUCOSE, URINE (UA) 4+ (NEGATIVE); KETONES,URINE NEGATIVE (NEGATIVE); LEUKOCYTE ESTERASE ,URINE 1+ (NEGATIVE); NITRITE,URINE NEGATIVE (NEGATIVE); PH,URINE 7 (4.5-8.0); PROTEIN,URINE NEGATIVE (NEGATIVE); UROBILINOGEN,URINE NORMAL MG/DL (0.0-1.0)
[2019-01-23 13:44] LABS: ALANINE AMINOTRANSFERASE 26 U/L (12-78); ALBUMIN 3.1 G/DL (3.4-5.0); ALBUMIN/GLOBULIN RATIO 0.6 (1.0-2.7); ALKALINE PHOSPHATASE 133 U/L (46-116); ANION GAP 10 mmol/L (5-15); ASPARTATE AMINO TRANSFERASE 14 U/L (15-37); BILIRUBIN,DIRECT < 0.1 MG/DL (0.0-0.3); BILIRUBIN,TOTAL 0.3 MG/DL (0.2-1.0); BLOOD UREA NITROGEN 16 mg/dL (7-18); CALCIUM 10.3 MG/DL (8.5-10.1); CARBON DIOXIDE 28 MMOL/L (21-32); CHLORIDE 99 MMOL/L (98-107); CHOLESTEROL 106 MG/DL (< 200); CREATININE 1.4 MG/DL (0.55-1.30); HDL CHOLESTEROL 42 MG/DL (40-60); POTASSIUM 3.3 MMOL/L (3.5-5.1); SODIUM 137 MMOL/L (136-145); TRIGLYCERIDES 84 MG/DL (30-150)
== END 2019-01-23 14:08 | disposition home or self-care (01) ==
LOC: LAB 12:08
DX: E11.9 Type 2 diabetes mellitus without complications (principal); E34.9 Endocrine disorder, unspecified
CPT/HCPCS: 36415; 80053; 80061; 81001; 82248; 82306; 83036; 84443; 84480; 84550; 85025; 85651; 86039; 86140; 86431; 86592; 87086

== ENCOUNTER → 2019-04-21 | Outpatient (CLI) | payer MEDICARE, OTHER ==
[2019-04-21 13:10] LABS: APPEARANCE,URINE CLEAR; BILIRUBIN, URINE NEGATIVE (NEGATIVE); COLOR,URINE PALE YELLOW; GLUCOSE, URINE (UA) NEGATIVE (NEGATIVE); KETONES,URINE NEGATIVE (NEGATIVE); LEUKOCYTE ESTERASE ,URINE 1+ (NEGATIVE); NITRITE,URINE NEGATIVE (NEGATIVE); PH,URINE 6 (4.5-8.0); PROTEIN,URINE NEGATIVE (NEGATIVE); UROBILINOGEN,URINE NORMAL MG/DL (0.0-1.0)
[2019-04-21 13:22] LABS: ALANINE AMINOTRANSFERASE 32 U/L (12-78); ALBUMIN 3.9 G/DL (3.4-5.0); ALKALINE PHOSPHATASE 91 U/L (46-116); ANION GAP 9 mmol/L (5-15); ASPARTATE AMINO TRANSFERASE 16 U/L (15-37); BILIRUBIN,TOTAL 0.3 MG/DL (0.2-1.0); BLOOD UREA NITROGEN 30 mg/dL (7-18); CALCIUM 11.2 MG/DL (8.5-10.1); CARBON DIOXIDE 23 MMOL/L (21-32); CHLORIDE 104 MMOL/L (98-107); CHOLESTEROL 154 MG/DL (< 200); CREATININE 1.5 MG/DL (0.55-1.30); HDL CHOLESTEROL 50 MG/DL (40-60); SODIUM 136 MMOL/L (136-145); TRIGLYCERIDES 141 MG/DL (30-150)
== END | disposition home or self-care (01) ==
LOC: LAB 12:05
DX: E11.9 Type 2 diabetes mellitus without complications (principal); M19.90 Unspecified osteoarthritis, unspecified site
CPT/HCPCS: 36415; 80053; 80061; 81003; 82306; 83036; 84443; 84550

== ENCOUNTER 2019-08-18 11:07 | Outpatient (CLI) | payer MEDICARE, OTHER ==
[2019-08-18 12:33] LABS: BASOPHILS % (AUTO) 0.8 % (0.0-2.0); EOSINOPHILS % (AUTO) 1.9 % (0.0-3.0); HEMATOCRIT 39.7 % (37.0-47.0); LYMPHOCYTES % (AUTO) 27.4 % (20.0-45.0); MEAN CORPUSCULAR VOLUME 95 FL (80-99); NEUTROPHILS % (AUTO) 63.9 % (45.0-75.0); PLATELET COUNT 252 K/UL (150-450); RED BLOOD COUNT 4.17 M/UL (4.20-5.40); RED CELL DISTRIBUTION WIDTH 10.4 % (11.6-14.8); WHITE BLOOD COUNT 8.1 K/UL (4.8-10.8)
[2019-08-18 12:35] LABS: APPEARANCE,URINE CLEAR; BILIRUBIN, URINE NEGATIVE (NEGATIVE); COLOR,URINE PALE YELLOW; GLUCOSE, URINE (UA) 3+ (NEGATIVE); KETONES,URINE NEGATIVE (NEGATIVE); LEUKOCYTE ESTERASE ,URINE 1+ (NEGATIVE); NITRITE,URINE NEGATIVE (NEGATIVE); PH,URINE 6.5 (4.5-8.0); PROTEIN,URINE NEGATIVE (NEGATIVE); UROBILINOGEN,URINE NORMAL MG/DL (0.0-1.0)
[2019-08-18 12:40] LABS: ALANINE AMINOTRANSFERASE 37 U/L (12-78); ALBUMIN 3.9 G/DL (3.4-5.0); ALBUMIN/GLOBULIN RATIO 0.9 (1.0-2.7); ALKALINE PHOSPHATASE 96 U/L (46-116); ANION GAP 9 mmol/L (5-15); ASPARTATE AMINO TRANSFERASE 21 U/L (15-37); BILIRUBIN,DIRECT < 0.1 MG/DL (0.0-0.3); BILIRUBIN,TOTAL 0.2 MG/DL (0.2-1.0); BLOOD UREA NITROGEN 19 mg/dL (7-18); CALCIUM 10.6 MG/DL (8.5-10.1); CARBON DIOXIDE 26 MMOL/L (21-32); CHLORIDE 103 MMOL/L (98-107); CHOLESTEROL 173 MG/DL (< 200); CREATININE 1.3 MG/DL (0.55-1.30); HDL CHOLESTEROL 51 MG/DL (40-60); POTASSIUM 4.5 MMOL/L (3.5-5.1); SODIUM 138 MMOL/L (136-145); TRIGLYCERIDES 147 MG/DL (30-150)
== END 2019-08-18 13:07 | disposition home or self-care (01) ==
LOC: LAB 11:07
DX: E34.9 Endocrine disorder, unspecified (principal)
CPT/HCPCS: 36415; 80053; 80061; 81003; 82248; 82306; 83036; 84550; 85025; 85651; 86039; 86140; 86431

== ENCOUNTER 2019-11-30 12:16 | Emergency (ER) | payer MEDICARE, MEDICAID ==
[~2019-11-30] VITALS: Ht 142.2 cm; Wt 55.3 kg
--- NOTE | 2019-11-30 12:30 | NUR ---
ED Nurse Note: pt arrives from home with family for c/o hives and itching started last night. relates had cereal with almond milk and started to itch. relates has had almond milk in past. placed on [facility] denies cp/dyspnea or sore throat.
[2019-11-30] MEDS ORDERED: DiphenhydrAMINE 50mg/ml Inj IVP ONE (13:00)
[2019-11-30] MEDS ORDERED: Solu-MEDROL 125mg Inj IVP ONE (13:00)
--- NOTE | 2019-11-30 13:15 | NUR ---
ED Nurse Note: pt tolerates meds well family at bs. slight decrease in redness and itching per pt.
[2019-11-30 13:23] VITALS: BP 124/72
--- NOTE | 2019-11-30 13:34 | Emergency Room Report ---
History of Present Illness General Chief Complaint: Allergic Reaction Source: Family Member Present Illness HPI Patient is a 74-year-old female presents after increased generalized body rash since last night. Patient had prior history of HIV as well as type 2 diabetes. Reports having normal CD4 count as well as undetectable viral load. Reports having onset of generalized body rash and itchy since last night. Reports having generalized body pain and itching. Reports having onset after drinking almond milk for the first time.Prior history of CVA with resulting left-sided facial droop. COVID-19 risk:Travel to affect: No Has patient experienced olson: No Allergies: Coded Allergies: No Known Allergies (Unverified , 01/04/19) Patient History Past Medical History: see triage record Now: No Reviewed Nursing Documentation: PMH: Agreed; PSxH: Agreed Nursing Documentation-PMH Hx Hypertension: Yes Hx Diabetes: Yes - Type 2 Hx Cancer: No Hx Gastrointestinal Problems: No Hx Cerebrovascular Accident: Yes - right sided, left sided weakness Hx Paralysis: Yes - partial, temporary Lt side Review of Systems All Other Systems: negative except mentioned in HPI Physical Exam Vital Signs Date Time Temp Pulse Resp B/P (MAP) Pulse Ox O2 Delivery O2 Flow Rate FiO2 11/30/19 12:24 98.6 116 24 111/69 (83) 93 Room Air Sp02 EP Interpretation: reviewed, normal General Appearance: normal inspection, alert, GCS 15 Head: atraumatic ENT: normal ENT inspection, hearing grossly normal, normal voice Neck: normal inspection, full range of motion, supple, no bony tend Respiratory: normal inspection, lungs clear, normal breath sounds, no respiratory distress, no retraction, no wheezing Cardiovascular #1: regular rate, rhythm, no edema Gastrointestinal: normal inspection, normal bowel sounds, non tender, soft, no guarding, no hernia Genitourinary: no CVA tenderness Musculoskeletal: normal inspection, back normal, normal range of motion Neurologic: alert, responsive, speech normal, normal inspection Psychiatric: normal inspection, judgement/insight normal, mood/affect normal Skin: other - Generalized urticarial rash Medical Decision Making Diagnostic Impression: Primary Impression: Urticarial rash ER Course Patient present for skin rash. Differential diagnosis includes but is not limited to allergic reaction, erythema multiforme, angioedema among others. Because of complexity of patient's case laboratory tests and imaging studies were ordered. Patient was noted to have some evidence of urticaria consistent with allergic reaction. She was given IV Benadryl as well as IV Solu-Medrol. Patient was noted to have improvement in rash over time. She did become somewhat somnolent with medications. She was given IV fluids.Patient was noted to have improvement and was discharged home. She advised to continue taking Benadryl every 6 hours. She was to return if any worsening condition or other concerns. The patient is advised to follow up with primary care doctor in 1-2 days. Patient is advised to return if any worsening condition or if any changes in status that are concerning. This report is dictated with [employer] equipment service technician software which may occasionally lead to discrepancies related to use of this software. Labs Test 11/30/19 13:05 White Blood Count 15.3 K/UL (4.8-10.8) Red Blood Count 4.10 M/UL (4.20-5.40) Hemoglobin 14.1 G/DL (12.0-16.0) Hematocrit 39.3 % (37.0-47.0) Mean Corpuscular Volume 96 FL (80-99) Mean Corpuscular Hemoglobin 34.4 PG (27.0-31.0) Mean Corpuscular Hemoglobin Concent 35.9 G/DL (32.0-36.0) Red Cell Distribution Width 10.6 % (11.6-14.8) Platelet Count 328 K/UL (150-450) Mean Platelet Volume 5.4 FL (6.5-10.1) Neutrophils (%) (Auto) 83.9 % (45.0-75.0) Lymphocytes (%) (Auto) 11.7 % (20.0-45.0) Monocytes (%) (Auto) 3.8 % (1.0-10.0) Eosinophils (%) (Auto) 0.5 % (0.0-3.0) Basophils (%) (Auto) 0.2 % (0.0-2.0) Sodium Level 138 MMOL/L (136-145) Potassium Level 4.7 MMOL/L (3.5-5.1) Chloride Level 105 MMOL/L (98-107) Carbon Dioxide Level 19 MMOL/L (21-32) Anion Gap 14 mmol/L (5-15) Blood Urea Nitrogen 29 mg/dL (7-18) Creatinine 1.6 MG/DL (0.55-1.30) Estimat Glomerular Filtration Rate 31.7 mL/min (>60) Glucose Level 248 MG/DL (74-106) Calcium Level 10.7 MG/DL (8.5-10.1) Total Bilirubin 0.2 MG/DL (0.2-1.0) Aspartate Amino Transf (AST/SGOT) 21 U/L (15-37) Alanine Aminotransferase (ALT/SGPT) 44 U/L (12-78) Alkaline Phosphatase 83 U/L (46-116) Total Protein 7.6 G/DL (6.4-8.2) Albumin 3.6 G/DL (3.4-5.0) Globulin 4.0 g/dL Albumin/Globulin Ratio 0.9 (1.0-2.7) Last Vital Signs Date Time Temp Pulse Resp B/P (MAP) Pulse Ox O2 Delivery O2 Flow Rate FiO2 11/30/19 12:24 98.6 116 24 111/69 (83) 93 Room Air Status: improved Disposition: HOME, SELF-CARE Condition: Stable Scripts Prednisone* (PREDNISONE*) 20 Mg Tablet 40 MG ORAL DAILY, #10 TAB Prov: Rahul Pak MD 11/30/19 Diphenhydramine Hcl* (BENADRYL ALLERGY*) 12.5 Mg/5 Ml Liquid 12.5 MG ORAL Q6H PRN for Itching, #120 ML 0 Refills Prov: Rahul Pak MD 11/30/19 Referrals: NON PHYSICIAN (PCP) Rahul Pak MD Nov 30, 2019 13:34
[2019-11-30 13:35] LABS: BASOPHILS % (AUTO) 0.2 % (0.0-2.0); EOSINOPHILS % (AUTO) 0.5 % (0.0-3.0); HEMATOCRIT 39.3 % (37.0-47.0); HEMOGLOBIN 14.1 G/DL (12.0-16.0); LYMPHOCYTES % (AUTO) 11.7 % (20.0-45.0); MEAN CORPUSCULAR VOLUME 96 FL (80-99); MONOCYTES % (AUTO) 3.8 % (1.0-10.0); NEUTROPHILS % (AUTO) 83.9 % (45.0-75.0); PLATELET COUNT 328 K/UL (150-450); RED CELL DISTRIBUTION WIDTH 10.6 % (11.6-14.8); WHITE BLOOD COUNT 15.3 K/UL (4.8-10.8)
[2019-11-30 13:43] LABS: ANION GAP 14 mmol/L (5-15); BLOOD UREA NITROGEN 29 mg/dL (7-18); CALCIUM 10.7 MG/DL (8.5-10.1); CARBON DIOXIDE 19 MMOL/L (21-32); CHLORIDE 105 MMOL/L (98-107); CREATININE 1.6 MG/DL (0.55-1.30); POTASSIUM 4.7 MMOL/L (3.5-5.1); SODIUM 138 MMOL/L (136-145)
[2019-11-30 13:47] LABS: ALANINE AMINOTRANSFERASE 44 U/L (12-78); ALBUMIN 3.6 G/DL (3.4-5.0); ALBUMIN/GLOBULIN RATIO 0.9 (1.0-2.7); ALKALINE PHOSPHATASE 83 U/L (46-116); ASPARTATE AMINO TRANSFERASE 21 U/L (15-37); BILIRUBIN,TOTAL 0.2 MG/DL (0.2-1.0)
[2019-11-30] MEDS ORDERED: BENADRYL A12.5 MG/5 ORAL (13:51)
[2019-11-30] MEDS ORDERED: PREDNISONE20 MG ORAL (13:52)
--- NOTE | 2019-11-30 14:30 | NUR ---
ED Nurse Note: pt and family aware of precautions with almond milk and almonds and to avoid at this time as unclear what allergen is. aslo advised to remain home during next few weeks due to pt age. pt to f/u with pmd
[2019-11-30 14:45] VITALS: BP 112/68
--- NOTE | 2019-11-30 14:45 | NUR ---
ED Nurse Note: Pt cleared by health care Provider for discharge. DC instructions/prescription was given and explained to pt and verbalized understanding of teachings. All medical devices such as ID band removed. iv out intactly Pt is AAO x4, ambulatory and left with all personal belongings.
== END 2019-11-30 14:45 | disposition home or self-care (01) ==
LOC: EMR 13:00
DX: L50.9 Urticaria, unspecified (principal); B20 Human immunodeficiency virus [HIV] disease; E11.9 Type 2 diabetes mellitus without complications; G81.94 Hemiplegia, unspecified affecting left nondominant side; I10 Essential (primary) hypertension
CPT/HCPCS: 36415; 80053; 85025; 96374; 96375; 99284; J1200; J2930; J7040